=== PATIENT | female | born 1950 | race Caucasian/White ===

== ENCOUNTER → 2016-12-28 | Outpatient (CLI) | payer MEDICARE, OTHER ==
[2016-12-28 11:58] LABS: CH 31.6; CHCM 33.5; HCT 40.1 % (34.0-46.0); HDW 2.39; HGB 13.5 gm/dL (11.4-16.0); MCH 31.8 pg (25.0-35.0); MCHC 33.6 g/dL (31.0-37.0); MCV 94.6 fL (80.0-100.0); Mean Platelet Volume 7.2; RBC 4.23 m/uL (3.80-5.40)
[2016-12-28 12:07] LABS: ALT 39 U/L (9-52); AST 44 U/L (14-36); Alkaline Phosphatase 72 U/L (38-126); Anion Gap 10 mmol/L; Blood Urea Nitrogen 13 mg/dL (7-17); Calcium 9.1 mg/dL (8.4-10.2); Carbon Dioxide 26 mmol/L (22-30); Chloride 102 mmol/L (98-107); Cholesterol 157 mg/dL (<200); Glucose 155 mg/dL (74-99); HDL Cholesterol 49 mg/dL (40-60); Non-African American GFR(MDRD) >60 (>60 ml/min/1.73 sqM); Sodium 138 mmol/L (137-145); Total Bilirubin 0.9 mg/dL (0.2-1.3); Total Protein 7.2 g/dL (6.3-8.2); Triglycerides 171 mg/dL (<150)
[2016-12-28 12:17] LABS: Potassium 5.2 mmol/L (3.5-5.1)
[2016-12-28 14:15] LABS: Hemoglobin A1C 7.9 % (4.2-6.1)
== END ==
LOC: LAB 11:29
PROVIDERS: ATTEND Internal Medicine
DX: E78.4 Other hyperlipidemia (principal); E87.8 Other disorders of electrolyte and fluid balance, not elsewhere classified; E11.69 Type 2 diabetes mellitus with other specified complication; R53.83 Other fatigue
CPT/HCPCS: 80053; 80061; 83036; 85027

== ENCOUNTER → 2016-12-28 | Outpatient (CLI) | payer MEDICARE, OTHER ==
--- NOTE | 2016-12-28 21:18 | CT ---
EXAMINATION TYPE: CT ChestAbdPelvis w con DATE OF EXAM: 12/28/2016 12:51 PM COMPARISON: 06/25/2016 HISTORY: 66-year-old female follow-up lymphoma TECHNIQUE: Contiguous axial scanning of the chest, abdomen, and pelvis performed with IV Contrast, pa tient injected with 100 mL of Omnipaque 300. Delayed images through the kidneys were obtained. Forrester l/sagittal reconstructions performed. CT DLP: 2260 mGycm Automated exposure control for dose reduction was used. FINDINGS: CHEST: The heart is upper limits of normal in size without pericardial effusion. Dense mitral annular calcif ications are present. Coronary vessel calcifications are remarkable for coronary artery disease. Aorta is normal caliber with conventional arch vessel branching anatomy. No mediastinal or hilar lymphadenopathy. A solitary right axillary lymph node is stable to minimally smaller measuring 2.3 x 2.0 cm versus 2.5 x 2.2 cm, previously. Evaluation of the lungs shows no consolidation or pleural effusion. Mild diffuse bronchial wall thick ening could represent bronchitis or chronic asthma. ABDOMEN: There is a moderate-sized hiatal hernia and postsurgical changes of sleeve gastrectomy. No focal liver lesion. Portal venous system is patent. No biliary ductal dilatation. Adrenal glands, kidneys, spleen, and mildly atrophic pancreas show no gross abnormality. Mild atherosclerotic calcifications within the abdominal aorta. No mesenteric or retroperitoneal lymphadenopathy seen. No dilated small bowel, free fluid, or free ai r. Mild overall stool burden without pericolonic inflammatory change. There is a moderate-sized periumbilical hernia measuring 6.8 cm wide. Pelvis: Prominent artifacts from patient's large body habitus limiting evaluation. Bladder is urine distended . Uterus and ovaries are visualized. No abnormal fluid collection in the pelvis or pelvic lymphadenop athy seen. Bones: Degenerative changes at the hips and mid to lower lumbar spine with endplate spondylosis throughout t he thoracic spine. No osseous destructive process. IMPRESSION: 1. RIGHT AXILLARY LYMPHADENOPATHY STABLE TO MINIMALLY SMALLER (2.3 X 2.0 CM VERSUS 2.5 X 2.2 CM, PREV IOUSLY). NO OTHER SUSPICIOUS LYMPHADENOPATHY SEEN. 2. STABLE MODERATE-SIZED HIATAL HERNIA (STATUS POST SLEEVE GASTRECTOMY) AND A MODERATE-SIZED FATTY UM BILICAL HERNIA.
== END | disposition home or self-care (01) ==
LOC: RADCTMAIN 11:18
PROVIDERS: ATTEND Internal Medicine Hematology & Oncology
DX: K44.9 Diaphragmatic hernia without obstruction or gangrene (principal); K42.9 Umbilical hernia without obstruction or gangrene; R59.0 Localized enlarged lymph nodes
CPT/HCPCS: 71260; 74177; 36415; Q9967

== ENCOUNTER 2017-03-12 07:36 | Day surgery (SDC) | payer MEDICARE, OTHER ==
[2017-03-06 08:20] VITALS: BMI 46.0
[~2017-03-12 07:36] MED LIST: LACTATED RINGERS 1,000 ML IV SCH
[2017-03-12 08:27] VITALS: RESP 16; TEMP 97
[2017-03-12] MEDS: CYCLOPENTOLATE 1% OPHTH SOLN 2 ML BTL OP ONE ×3 (08:28→08:43)
[2017-03-12] MEDS ORDERED: LIDOCAINE 1% 20 ML VIAL (10MG/ML) FOR IV START INTRADERMA ONE (08:30)
[2017-03-12] MEDS: FLURBIPROFEN 0.03% OPHTH DROPS 2.5 ML BTL OP ONE ×3 (08:31→08:45)
[2017-03-12] MEDS: PHENYLEPHRINE 10% OPHTH DROPS 5 ML BTL OP ONE ×2 (08:34→08:47)
[2017-03-12 08:38] LABS: Glucose,Whole Blood 169 mg/dL (75-99)
[2017-03-12] MEDS ORDERED: PROPOFOL 10 MG/ML 20 ML VIAL IV ONE (09:08)
[2017-03-12] MEDS ORDERED: fentaNYL (PF) 50 MCG/ML 2 ML AMP ONE (09:08)
[2017-03-12] MEDS ORDERED: MIDAZOLAM 2 MG/2 ML VIAL ONE (09:08)
[2017-03-12] MEDS ORDERED: EPINEPHrine (PF) 0.5 ML in BALANCED SALT IRRIG SOLN COMB2 500 ML IRRIGATION ONE (09:12)
[2017-03-12] MEDS ORDERED: BALANCED SALT IRRIG SOLN COMB2 15 ML IRRIG.SOLN IRRIGATION ONE (09:14)
[2017-03-12] MEDS ORDERED: HYALURONATE SODIUM INTRAOCULAR 1 EACH SYRINGE (10MG/ML) INTRAOCULA ONE (09:14)
--- NOTE | 2017-03-12 09:32 | P.OP ---
Date of Procedure: 03/12/17 Preoperative Diagnosis: Postoperative Diagnosis: Procedure(s) Performed: PREOPERATIVE DIAGNOSIS: Cataract, right eye. POSTOPERATIVE DIAGNOSIS: Cataract, right eye. OPERATION: Phacoemulsification cataract, right eye. DESCRIPTION OF PROCEDURE: The patient was taken to the preoperative holding area. Intravenous Propofol was given so as to bring about adequate sedation. The following mixture was given for local anesthesia: 5 mL of 2% lidocaine, 5 mL of 0.75% Marcaine, and 1 mL of Wydase. Approximately 4 mL was injected in the retrobulbar space of the surgical eye. Additional 1 mL was then directed to the temporal area of the surgical eye. This was performed to allow adequate neurological block of the facial muscles. The patient was revived and then taken into the operative room. The patient was prepped and draped in the usual sterile manner for the operative eye. A lid speculum was put into position. The conjunctiva was resected back from the limbus in the 12 o'clock position. Bleeding was controlled with electrocautery. A #69 blade was then used and a half-thickness scleral incision approximately 1-mm posterior to the limbus was made on bare sclera. This was shelved in the clear cornea using a crescent knife. Next a 15-degree blade was used to make a stab incision at the 3 o' clock position at the corneolimbal interface. Keratome blade was then used and the superior wound was extended into the anterior chamber. Viscoelastic was injected into the anterior chamber and to maintain its form. Next, a cystotome was used and a continuous anterior capsulotomy was made without difficulty. Hydrodissection using a blunt cannula and BSS was performed. Phaco probe was then employed and a groove extending from 12 to 6 o'clock in the lens was created. A Juan F wand was used through the stab incision so as to perform a divide and conquer technique. Next an irrigation aspiration probe was utilized and any residual cortex was removed from the eye. Again, viscoelastic was injected into the anterior chamber. An Yaakov posterior chamber lens implant was placed in the cartridge and injected into the anterior chamber without difficulty. The Clozeey hook was utilized to spin the lens into position and this was again performed without any difficulty. The irrigation and aspiration probe was again employed and any residual viscoelastic was removed from the eye. Then BSS was injected into the limbal stab incision and the anterior chamber re-inflated. The conjunctiva was reapproximated using electrocautery. One drop of 0.25% Timoptic was placed over the corneal along with TobraDex ophthalmic ointment. Two sterile patches and a Teran eye shield were taped into position. The patient was transported to the recovery room in stable condition. Implants: Pathology: none sent Condition: stable Disposition: same day Indications for Procedure: Operative Findings: Description of Procedure:
[2017-03-12 09:43] LABS: Glucose,Whole Blood 151 mg/dL (75-99)
[2017-03-12 09:46] VITALS: BP 106/59; PULSE 60
[2017-03-12] MEDS ORDERED: GENTAMICIN/PREDNISOL AC OPHTH OINT 3.5GM OPHTHALMIC ONE (23:00)
[2017-03-12] MEDS ORDERED: BUPIVACAINE (PF) 0.75% 5 ML, LIDOCAINE 4% (PF) 5 ML, HYALURONIDASE, HUMAN RECOMB 150 UNIT MISCELLANE ONE ×3 (23:00)
[2017-03-12] MEDS ORDERED: TIMOLOL 0.5% OPHTH SOLN (PF) 0.2 ML DROPERETTE OP ONE (23:00)
== END 2017-03-12 10:09 | disposition home or self-care (01) ==
LOC: OR 07:36
PROVIDERS: ATTEND Ophthalmology
DX: H25.11 Age-related nuclear cataract, right eye (principal); E11.9 Type 2 diabetes mellitus without complications; M19.90 Unspecified osteoarthritis, unspecified site; C50.919 Malignant neoplasm of unspecified site of unspecified female breast; J30.2 Other seasonal allergic rhinitis; H40.059 Ocular hypertension, unspecified eye; I10 Essential (primary) hypertension; E78.5 Hyperlipidemia, unspecified; G47.33 Obstructive sleep apnea (adult) (pediatric); I82.409 Acute embolism and thrombosis of unspecified deep veins of unspecified lower extremity; Z79.84 Long term (current) use of oral hypoglycemic drugs; Z79.82 Long term (current) use of aspirin; Z79.4 Long term (current) use of insulin; Z79.899 Other long term (current) drug therapy; Z87.891 Personal history of nicotine dependence
CPT/HCPCS: 66984; V2632; J2001; J2250; J3470; J0171; J3010; J2704

== ENCOUNTER 2017-04-30 08:35 | Day surgery (SDC) | payer MEDICARE, OTHER ==
[2017-04-26 12:55] VITALS: BMI 46.0
[~2017-04-30 08:35] MED LIST changes: +LIDOCAINE 1% 20 ML VIAL (10MG/ML) FOR IV START INTRADERMA PRN
[2017-04-30] MEDS: PHENYLEPHRINE 10% OPHTH DROPS 5 ML BTL OP ONE ×3 (09:45→09:57)
[2017-04-30] MEDS: KETOROLAC 0.5% OPHTH DROPS 3 ML BTL OP ONE ×3 (09:47→09:59)
[2017-04-30] MEDS: CYCLOPENTOLATE 1% OPHTH SOLN 2 ML BTL OP ONE ×3 (09:49→10:01)
[2017-04-30] MEDS ORDERED: LIDOCAINE 1% 20 ML VIAL (10MG/ML) FOR IV START INTRADERMA ONE (09:55)
[2017-04-30] MEDS ORDERED: LACTATED RINGERS 1,000 ML IV ONE (09:55)
[2017-04-30 09:58] VITALS: RESP 16; TEMP 98.1
[2017-04-30 10:27] LABS: Glucose,Whole Blood 111 mg/dL (75-99)
[2017-04-30] MEDS ORDERED: PROPOFOL 10 MG/ML 20 ML VIAL IV ONE (10:28)
[2017-04-30] MEDS ORDERED: HYALURONATE SODIUM INTRAOCULAR 1 EACH SYRINGE (10MG/ML) INTRAOCULA ONE (10:37)
[2017-04-30] MEDS ORDERED: BALANCED SALT IRRIG SOLN COMB2 15 ML IRRIG.SOLN INTRAOCULA ONE (10:37)
[2017-04-30] MEDS ORDERED: EPINEPHrine (PF) 0.5 ML in BALANCED SALT IRRIG SOLN COMB2 500 ML IRRIGATION ONE (10:38)
--- NOTE | 2017-04-30 10:51 | P.OP ---
Date of Procedure: 04/30/17 Procedure(s) Performed: PREOPERATIVE DIAGNOSIS: Cataract, left eye. POSTOPERATIVE DIAGNOSIS: Cataract, left eye. OPERATION: Phacoemulsification cataract, left eye eye. DESCRIPTION OF PROCEDURE: The patient was taken to the preoperative holding area. Intravenous Propofol was given so as to bring about adequate sedation. The following mixture was given for local anesthesia: 5 mL of 2% lidocaine, 5 mL of 0.75% Marcaine, and 1 mL of Wydase. Approximately 4 mL was injected in the retrobulbar space of the surgical eye. Additional 1 mL was then directed to the temporal area of the surgical eye. This was performed to allow adequate neurological block of the facial muscles. The patient was revived and then taken into the operative room. The patient was prepped and draped in the usual sterile manner for the operative eye. A lid speculum was put into position. The conjunctiva was resected back from the limbus in the 12 o'clock position. Bleeding was controlled with electrocautery. A #69 blade was then used and a half-thickness scleral incision approximately 1-mm posterior to the limbus was made on bare sclera. This was shelved in the clear cornea using a crescent knife. Next a 15-degree blade was used to make a stab incision at the 3 o' clock position at the corneolimbal interface. Keratome blade was then used and the superior wound was extended into the anterior chamber. Viscoelastic was injected into the anterior chamber and to maintain its form. Next, a cystotome was used and a continuous anterior capsulotomy was made without difficulty. Hydrodissection using a blunt cannula and BSS was performed. Phaco probe was then employed and a groove extending from 12 to 6 o'clock in the lens was created. A Juan F wand was used through the stab incision so as to perform a divide and conquer technique. Next an irrigation aspiration probe was utilized and any residual cortex was removed from the eye. Again, viscoelastic was injected into the anterior chamber. An Yaakov posterior chamber lens implant was placed in the cartridge and injected into the anterior chamber without difficulty. The Sinskey hook was utilized to spin the lens into position and this was again performed without any difficulty. The irrigation and aspiration probe was again employed and any residual viscoelastic was removed from the eye. Then BSS was injected into the limbal stab incision and the anterior chamber re-inflated. The conjunctiva was reapproximated using electrocautery. One drop of 0.25% Timoptic was placed over the corneal along with TobraDex ophthalmic ointment. Two sterile patches and a Teran eye shield were taped into position. The patient was transported to the recovery room in stable condition. Pathology: none sent Condition: stable Disposition: same day
[2017-04-30 11:09] VITALS: BP 134/69; PULSE 60
[2017-04-30 11:13] LABS: Glucose,Whole Blood 94 mg/dL (75-99)
[2017-04-30] MEDS ORDERED: TIMOLOL 0.5% OPHTH SOLN (PF) 0.2 ML DROPERETTE OP ONE (23:00)
[2017-04-30] MEDS ORDERED: GENTAMICIN/PREDNISOL AC OPHTH OINT 3.5GM OPHTHALMIC ONE (23:00)
[2017-04-30] MEDS ORDERED: BUPIVACAINE (PF) 0.75% 5 ML, LIDOCAINE 4% (PF) 5 ML, HYALURONIDASE, HUMAN RECOMB 150 UNIT MISCELLANE ONE ×3 (23:00)
== END 2017-04-30 11:28 | disposition home or self-care (01) ==
LOC: OR 08:35
PROVIDERS: ATTEND Ophthalmology
DX: H26.9 Unspecified cataract (principal); Z87.891 Personal history of nicotine dependence; E11.9 Type 2 diabetes mellitus without complications; I10 Essential (primary) hypertension; E78.5 Hyperlipidemia, unspecified; Z86.718 Personal history of other venous thrombosis and embolism; Z85.3 Personal history of malignant neoplasm of breast; Z79.82 Long term (current) use of aspirin; Z79.84 Long term (current) use of oral hypoglycemic drugs; Z79.899 Other long term (current) drug therapy; Z79.4 Long term (current) use of insulin
CPT/HCPCS: 66984; V2632; J2001; J3470; J0171; J2704

== ENCOUNTER → 2017-06-26 | Outpatient (CLI) | payer MEDICARE, OTHER ==
[2017-06-26 12:32] LABS: Blood Urea Nitrogen 16 mg/dL (7-17); Non-African American GFR(MDRD) >60 (>60 ml/min/1.73 sqM)
--- NOTE | 2017-06-26 14:02 | CT ---
EXAMINATION TYPE: CT ChestAbdPelvis w con DATE OF EXAM: 06/26/2017 COMPARISON: 12/28/2016 HISTORY: Lymphoma CT DLP: 1874 mGycm Automated exposure control for dose reduction was used. CONTRAST: CT scan of the chest, abdomen and pelvis is performed with Oral Contrast and with IV Contrast, patien t injected with 100 ml mL of Omnipaque 300. FINDINGS: LUNGS: The lungs are grossly clear, there is no concerning parenchymal mass or nodule identified. T here is no pleural effusion or pneumothorax seen. The tracheobronchial tree is patent. MEDIASTINUM: There are no greater than 1 cm hilar or mediastinal lymph nodes. No pericardial effusi on is seen. Coronary artery calcification noted. OTHER: There is a lymph node in the right axilla measuring 2.3 x 1.7 cm and previously measuring 2.3 x 2 cm. Vague densities within the left breast are seen likely representing fibroglandular tissue be correlated with mammography.. LIVER/GB: No significant abnormality is appreciated. PANCREAS: No significant abnormality is seen. SPLEEN: No significant abnormality is seen. ADRENALS: No significant abnormality is seen. KIDNEYS: No significant abnormality is seen. BOWEL: Moderate sized hiatal hernia noted. Bowel gas pattern nonspecific. Postsurgical changes in the epigastric region are noted. LYMPH NODES: No greater than 1 cm abdominal or pelvic lymph nodes are appreciated. OSSEOUS STRUCTURES: Generative disc disease and arthropathy of the hips noted. OTHER: Periumbilical h ernia is stable. Stable sclerosis along the SI joint on the left correlate for sacroiliitis. IMPRESSION: 1. Persistent area of adenopathy right axilla slightly improved from the previous exam now measuring 2.3 x 1.7 cm and previously measuring 2.3 x 2 cm. 2. Stable moderate size hiatal hernia. 3. Stable moderate-sized fat-containing periumbilical hernia.
== END | disposition home or self-care (01) ==
LOC: RADCTMAIN 11:49
PROVIDERS: ATTEND Internal Medicine Hematology & Oncology
DX: C85.98 Non-Hodgkin lymphoma, unspecified, lymph nodes of multiple sites (principal); R59.0 Localized enlarged lymph nodes; K44.9 Diaphragmatic hernia without obstruction or gangrene; K42.9 Umbilical hernia without obstruction or gangrene
CPT/HCPCS: 82565; 84520; 71260; 74177; 36415; Q9967

== ENCOUNTER → 2017-12-20 | Outpatient (CLI) | payer MEDICARE, OTHER ==
[2017-12-20 08:34] LABS: Blood Urea Nitrogen 15 mg/dL (7-17)
--- NOTE | 2017-12-20 10:39 | CT ---
EXAMINATION TYPE: CT ChestAbdPelvis w con DATE OF EXAM: 12/20/2017 COMPARISON: 06/26/2017, 12/28/2016 and 07/12/2015 HISTORY: Follow-up exam for lymphoma and breast cancer. Last chemotherapy in September 2013 and last r adiation in February or March 2014. Surgical history of left breast lumpectomy and gastric sleeve. CT DLP: 3348.3 mGycm. Automated Exposure Control for Dose Reduction was Utilized. CONTRAST: CT scan of the thorax, abdomen and pelvis is performed with IV Contrast, patient injected with 100 mL of Isovue 300. FINDINGS: LUNGS: The lungs are grossly clear, there is no concerning parenchymal mass or nodule identified. T here is no pleural effusion or pneumothorax seen. The tracheobronchial tree is patent. Stable vegetables cook ior left upper lobe focal pleural thickening measuring 2 to 3 mm is unchanged. Scattered areas of herminio gular atelectasis are noted. MEDIASTINUM: There are no greater than 1 cm hilar or mediastinal lymph nodes. No pericardial effusi on is seen. Dense mitral annular calcifications are seen with moderate coronary artery calcification s. OTHER: The known enlarged right axillary lymph node now measures 2.3 x 1.7 cm and previously also aida sured 2.3 x 1.7 cm on the exam of 06/26/2017, measuring 2.3 x 2.0 cm on the exam of 12/28/2016. No add itional right-sided adenopathy is seen within the axilla. No left axillary adenopathy is identified. No internal mammary adenopathy is visualized left breast asymmetries on series 3 image 20 and 29 are similar to the prior of 06/26/2017. LIVER/GB: No significant abnormality is appreciated. PANCREAS: No significant abnormality is seen. SPLEEN: No significant abnormality is seen. ADRENALS: No significant abnormality is seen. KIDNEYS: No significant abnormality is seen. BOWEL: Moderate hiatal hernia is noted with postsurgical change at the gastroesophageal junction fro m prior sleeve gastrectomy. GENITAL ORGANS: No gross abnormality seen. LYMPH NODES: No greater than 1cm abdominal or pelvic lymph nodes are appreciated. OSSEOUS STRUCTURES: Degenerative changes of the femoral acetabular joints and of the visualized thora columbar and lumbosacral spine are moderate. Grade 1 anterolisthesis of L4 on L5 is present. OTHER: Moderate calcific atheromatous changes are seen of the abdominal aorta and its branches. That filled ventral abdominal hernia has a wide neck measuring 4.3 cm. IMPRESSION: 1. Stable enlarged right axillary lymph node in comparison to the prior of 06/26/2017, slightly impro johnny from the exam of 12/28/2016. 2. Unchanged moderate hiatal hernia with postsurgical changes of the sleeve gastrectomy and ventral f at filled abdominal wall hernia. 3. No suspicious intrathoracic adenopathy or adenopathy within the abdomen or pelvis.
== END | disposition home or self-care (01) ==
LOC: RADCTMAIN 07:50
PROVIDERS: ATTEND Internal Medicine Hematology & Oncology
DX: C85.98 Non-Hodgkin lymphoma, unspecified, lymph nodes of multiple sites (principal); K43.9 Ventral hernia without obstruction or gangrene; K44.9 Diaphragmatic hernia without obstruction or gangrene; Z98.890 Other specified postprocedural states
CPT/HCPCS: 82565; 84520; 71260; 74177; Q9967

== ENCOUNTER → 2018-01-20 | Outpatient (CLI) | payer MEDICARE, OTHER ==
--- NOTE | 2018-01-22 07:35 | MM ---
Reason for exam: screening (asymptomatic). Last mammogram was performed 1 year and 5 months ago. History: Patient is postmenopausal, has history of other cancer at age 63, and has history of breast cancer at age 57. Family history of breast cancer in sister at age 25. Malignant right breast aspiration of the right breast, June 12, 2013. Lumpectomy of the left breast, 2007. Chemotherapy. Radiation therapy. Physical Findings: A clinical breast exam by your physician is recommended on an annual basis and results should be correlated with mammographic findings. MG 3D Screening Mammo W/Cad Bilateral CC and MLO view(s) were taken. Prior study comparison: August 07, 2016, bilateral MG 3d diag mammo w/cad DAVID. April 08, 2015, bilateral MG diagnostic mammo w CAD DAVID. There are scattered fibroglandular densities. There is a multilobulated elongated mass with associated calcification in the medial central, likely slightly inferior left breast at middle depth. Right mass upper outer quadrant is stable over multiple prior exams. Lumpectomy change on the left. ASSESSMENT: Incomplete: need additional imaging evaluation, BI-RAD 0 RECOMMENDATION: Special view mammogram of the left breast. If lesion persists on supplemental views, image directed ultrasound is recommended. [facility] will attempt to contact patient to return for supplemental views and ultrasound if indicated.
== END | disposition home or self-care (01) ==
LOC: RADMAMWWP 14:33
PROVIDERS: ATTEND Internal Medicine
DX: Z12.31 Encounter for screening mammogram for malignant neoplasm of breast (principal)
CPT/HCPCS: 77063; 77067

== ENCOUNTER → 2018-01-24 | Outpatient (CLI) | payer MEDICARE, OTHER ==
--- NOTE | 2018-01-24 11:58 | MM ---
Reason for exam: additional evaluation requested from abnormal screening. Last mammogram was performed less than 1 month ago. History: Patient is postmenopausal, has history of other cancer at age 63, and has history of breast cancer at age 57. Family history of breast cancer in sister at age 25. Malignant right breast aspiration of the right breast, June 12, 2013. Lumpectomy of the left breast, 2007. Chemotherapy. Radiation therapy. Physical Findings: Nurse did not find any significant physical abnormalities on exam. MG 3D Work Up W/Cad LT CC with magnification, LM with magnification, and LM view(s) were taken of the left breast. Prior study comparison: January 20, 2018, bilateral MG 3d screening mammo w/cad. August 07, 2016, bilateral MG 3d diag mammo w/cad DAVID. There are scattered fibroglandular densities. There is a persistent multilobulated mass with associated calcifications. These results were verbally communicated with the patient and result sheet given to the patient on 01/24/18. ASSESSMENT: Incomplete: need additional imaging evaluation, BI-RAD 0 RECOMMENDATION: Ultrasound of the left breast. (inferior)
--- NOTE | 2018-01-24 12:01 | USB ---
Reason for exam: additional evaluation requested from abnormal screening. History: Patient is postmenopausal, has history of other cancer at age 63, and has history of breast cancer at age 57. Family history of breast cancer in sister at age 25. Malignant right breast aspiration of the right breast, June 12, 2013. Lumpectomy of the left breast, 2007. Chemotherapy. Radiation therapy. US Breast Workup LT Left complete breast ultrasound includes all four quadrants, the retroareolar region and axilla. Finding demonstrates a 0.9 x 0.5 x 0.9cm oval, solid lesion at 5 o'clock next to radial scar questionable mass. This appears as scar adjacent to the lumpectomy site and is not thought to correlate to the mammographic finding. These results were verbally communicated with the patient and result sheet given to the patient on 01/24/18. ASSESSMENT: Suspicious, BI-RAD 4 RECOMMENDATION: Stereotactic core biopsy of the left breast. Called Dr. Mock with mammographic findings and per office-okay to schedule biopsy and Dr. Mock will give results. Biopsy scheduled for 01/28/18 at 10:00. PRELIMINARY REPORT CALLED AND FAXED TO DR. MOCK ON 01/24/18.
== END | disposition home or self-care (01) ==
LOC: RADMAMWWP 08:33
PROVIDERS: ATTEND Internal Medicine
DX: R92.8 Other abnormal and inconclusive findings on diagnostic imaging of breast (principal)
CPT/HCPCS: 77065; 76641; G0279; 77061

== ENCOUNTER → 2018-02-06 | Day surgery (SDC) | payer MEDICARE, OTHER ==
[2018-02-06 09:30] VITALS: RESP 16; BMI 45.1
[2018-02-06 11:39] VITALS: BP 98/58; PULSE 79; TEMP 98.3
--- NOTE | 2018-02-06 12:58 | MM ---
Stereotactic Mammotome core biopsy left breast. HISTORY: Lobulated mass lower left breast with 2 sites sampled The lobulated mass in question within the left breast were targeted by the undersigned. Procedure was performed by the undersigned. Informed consent was obtained and all of the patients questions were answered. The standard sterile technique was utilized and appropriate local anesthesia was obtained with 1% lidocaine. Mammotome probe was advanced and multiple core samples were obtained and sent to pathology for interpretation from 2 sites. Microclip marker was deployed at each site of biopsy. Post procedural mammogram demonstrates appropriate deployment of radiopaque clip markers. The patient tolerated the procedure well and left the department in stable condition. Pathology results are pending. IMPRESSION: Successful stereotactic core biopsy Lobulated mass lower left breast with 2 sites sampled. Pathology results pending. Pathology Results: Malignant A. 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 See Surgical Pathology Cancer Case Summary. B. 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 See Surgical Pathology Cancer Case Summary. Recommendation Surgical consult of the left breast. PHAND
== END | disposition home or self-care (01) ==
LOC: RADMAMWWP 08:54
PROVIDERS: ATTEND Internal Medicine
DX: C50.812 Malignant neoplasm of overlapping sites of left female breast (principal)
CPT/HCPCS: 19081; 19082; 88305; A4648; J2001

== ENCOUNTER → 2018-02-21 | Outpatient (CLI) | payer MEDICARE, OTHER ==
[2018-02-21 11:15] VITALS: BP 107/67; PULSE 71; TEMP 98.1; BMI 45.1
--- NOTE | 2018-02-21 12:13 | P.GSHP ---
History of Present Illness H&P Date: 02/21/18 Mrs. Mcdowell is a 68-year-old white female who underwent routine mammogram on . No lesions of concern were noted in the right breast. Additional views were recommended of the left breast which revealed a lesion for which biopsy was recommended. She was noted to have an area of increased lobulation in the left breast. 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 The size was approximately 3.2 cm. This is ER/MA positive and HER-2 negative. Patient is status post a lymphoma in the right axilla 4 years ago. She has been treated for a non-Hodgkin's lymphoma with chemotherapy and radiation in the right axilla. She is clear of any evidence of disease from this at this time. The patient has not felt anything of concern in either breast. She has no nipple discharge or changes. No skin changes in her breasts. She has not noted any enlargement of lymph nodes recently. She has lymphedema in the right arm related to the treatment of a lymphoma and wears a compression sleeve. The patient is status post left breast lumpectomy and radiation therapy in 2007, no chemotherapy. She did not have any hormonal therapy. She is not aware of the type of cancer but told stage zero. Family History: 1. patient nonhodgkins lymphoma 2. prior left breast cancer 3. sister: breast cancer in her 20's, mastectomy 4. sister: lung, smoker Past surgical history: 1. Gastric sleeve 2. Fractured elbow on the right and replaced 3. Right axillary biopsy to diagnose non-Hodgkin's lymphoma 4. Left breast lumpectomy in 2007 5. Mediport placement/and removal 6. Arthroscopy left knee Medical history: 1. Hypertension 2. Diabetes 3. Lymphedema right upper extremity 4. DVT left lower leg took blood thinners and this was in 2010 Hormonal history: Menarche: 14 Pregnancies: 4, 4 live births, breast fed 3 of the children, first child born at 24 Menopause: 16 Hormones: none BCP: 10 years Social history: Smoke: Negative Alcohol: Negative Drugs: Negative - Constitutional Constitutional: Denies chills, Denies fever - EENT Eyes: denies blurred vision, denies decreased vision (cataracts removed) Ears: deny: decreased hearing, tinnitus Ears, nose, mouth and throat: Denies headache, Denies sore throat - Breasts Breasts: bilateral: as per HPI - Cardiovascular Cardiovascular: Reports high blood pressure - Respiratory Comment: CPAP sleep apnea Respiratory: Denies cough, Denies 7 - Gastrointestinal Comment: has regular colonoscopies, done last year benign polyp Gastrointestinal: Denies abdominal pain, Denies diarrhea, Denies nausea, Denies vomiting - Genitourinary (Female) Comment: UTI at times Genitourinary: Denies dysuria, Denies hematuria - Menstruation Menstruation: Reports postmenopausal - Musculoskeletal Comment: arthritis - Integumentary Integumentary: Denies pruritus, Denies rash - Neurological Neurological: Denies numbness, Denies weakness - Psychiatric Psychiatric: Denies anxiety, Denies depression - Endocrine Endocrine: Denies fatigue, Denies weight change - Hematologic/Lymphatic Comment: aspirin - Allergic/Immunologic Comment: none Past Medical History Past Medical History: Cancer, Diabetes Mellitus, Deep Vein Thrombosis (DVT), Eye Disorder, Hyperlipidemia, Hypertension, Osteoarthritis (OA), Skin Disorder, Sleep Apnea/CPAP/BIPAP Additional Past Medical History / Comment(s): eczema, hx breast cancer, non hodgkins lymphoma, fracture left foot 04/2016, CATARACT LT EYE, RT eye. Multiple joint repairs History of Any Multi-Drug Resistant Organisms: None Reported Past Surgical History: Bariatric Surgery, Breast Surgery, Joint Replacement, Orthopedic Surgery, Tonsillectomy Additional Past Surgical History / Comment(s): left breast lumpectomy 2007 with radiation. arthroscopic left knee, rt elbow replacement, port inserted/later removed 2012 for lymphoma, gastric sleeve, CATARACT REMOVED RT EYE 03/12/17, Left eye cataract, BX OF RT AXILLA 2012 WITH CHEMO AND RADIATION THERAPY Past Anesthesia/Blood Transfusion Reactions: No Reported Reaction Past Psychological History: No Psychological Hx Reported Smoking Status: Former smoker Past Alcohol Use History: None Reported Additional Past Alcohol Use History / Comment(s): quit smoking 1976 smoked for 10 yrs, 1 PPD Past Drug Use History: None Reported - Past Family History Sister(s) Family Medical History: Cancer Additional Family Medical History / Comment(s): OLDEST SISTER HAD BREAST CANCER 1966, MIDDLE SISTER HAD LUNG CANCER 2012 Father Additional Family Medical History / Comment(s): HEART PROBLEMS Medications and Allergies Home Medications Medication Instructions Recorded Confirmed Type Atorvastatin [Lipitor] 40 mg PO HS 03/06/17 02/21/18 History Calcium Carbonate 1,000 mg PO BID 03/06/17 02/21/18 History Cholecalciferol [Vitamin D3] 1,000 unit PO BID 03/06/17 02/21/18 History Cyanocobalamin (Vitamin B-12) 1,000 mcg PO TUTH 03/06/17 02/21/18 History [Vitamin B-12] Ferrous Sulfate [Feosol] 325 mg PO BID 03/06/17 02/21/18 History Furosemide [Lasix] 20 mg PO DAILY 03/06/17 02/21/18 History Gabapentin [Neurontin] 200 mg PO BID 03/06/17 02/21/18 History Insuln Asp Prt/Insulin Aspart 15 unit SQ BID 03/06/17 02/21/18 History [NovoLOG MIX 70-30 VIAL] Lisinopril [Zestril] 10 mg PO QAM 03/06/17 02/21/18 History Meloxicam [Mobic] 7.5 mg PO QAM 03/06/17 02/21/18 History Multivitamins, Thera [Multivitamin 1 tab PO QAM 03/06/17 02/21/18 History (formulary)] metFORMIN HCL [Glucophage] 500 mg PO BID 03/06/17 02/21/18 History Aspirin EC [Ecotrin Low Dose] 81 mg PO DAILY 01/27/18 02/21/18 History Ascorbic Acid [Vitamin C] 1,000 mg PO BID 02/21/18 02/21/18 History Allergies Allergy/AdvReac Type Severity Reaction Status Date / Time No Known Allergies Allergy Verified 02/06/18 09:08 Surgical - Exam Vital Signs Temp Pulse BP Pulse Ox 98.1 F 71 107/67 97 02/21/18 11:12 02/21/18 11:12 02/21/18 11:12 02/21/18 11:12 - General obese - Eyes normal ocular movement, no icteric - ENT no hearing loss, no congestion - Neck no masses, trachea midline - Respiratory normal respiratory effort, clear to auscultation - Cardiovascular Rhythm: regular Heart Sounds: normal: S1, S2 - Abdomen Abdomen: soft, non tender, no guarding, no rigid, no rebound - Integumentary no rash, no abnormal pigmentation - Neurologic no disoriented, no combative - Musculoskeletal normal gait, normal posture, other - Psychiatric oriented to time, oriented to person, oriented to place, speech is normal, memory intact Breast examination: Right breast: Positional exam no dominant masses or nodules of concern Right axilla: No adenopathy of concern Patient has swollen right upper extremity related to lymphedema from prior treatment for non-Hodgkin's lymphoma Left breast: Well-healed scar from prior lumpectomy radiation changes no dominant masses or nodules of concern appreciated otherwise Left axilla: No adenopathy of concern Assessment and Plan Assessment: Impression/plan: 1. New diagnosis of left breast mucinous invasive invasive carcinoma 2. Prior history of left breast lumpectomy and radiation therapy 3. Prior surgery for morbid obesity 4. Arthritis 5. Hypertension 6. Non-Hodgkin's lymphoma treated with radiation chemotherapy right upper extremity Plan: 1. I will discuss the case with medical oncology and radiation oncology 2. present the patient at tumor board cc: Cathy
== END | disposition home or self-care (01) ==
LOC: WWCWWP 10:28
PROVIDERS: ATTEND Surgery
DX: Z53.9 Procedure and treatment not carried out, unspecified reason (principal)

== ENCOUNTER → 2018-02-28 | Outpatient (CLI) | payer MEDICARE, OTHER ==
[2018-02-28 09:52] VITALS: BP 104/70; PULSE 68; TEMP 97.5; BMI 45.1
--- NOTE | 2018-02-28 10:36 | P.PN ---
Progress Note - Text Progress Note Date: 02/28/18 Mrs. Monson and her come in today for preoperative discussion prior to surgery next week. Her case was discussed with Dr. Duggan who is her medical oncologist. Dr. Duggan is in agreement with a bilateral mastectomy. She will undergo a right simple mastectomy and a left mastectomy with a sentinel node biopsy possible axillary node dissection. The patient and her understand the risks and benefits including bleeding and infection reaction to the anesthetic and wish to proceed. Impression/plan: 1. Right axillary radiation treatment secondary to lymphoma, as well as chemotherapy secondary to lymphoma, this was treated by Dr. Duggan and patient is in remission 2. Prior left breast lumpectomy and radiation therapy for DCIS 3. New onset left breast cancer Plan: 1. Right mastectomy, left sentinel node biopsy and simple mastectomy with possible axillary node dissection 2. Left breast sentinel node injection CC: Dr. Nicole
== END ==
LOC: WWCWWP 09:35
PROVIDERS: ATTEND Surgery
DX: Z53.9 Procedure and treatment not carried out, unspecified reason (principal)

== ENCOUNTER → 2018-02-28 | Outpatient (CLI) | payer MEDICARE, OTHER | END | disposition home or self-care (01) | LOC: LABPAT 10:43 | PROVIDERS: ATTEND Surgery | DX: Z01.812 Encounter for preprocedural laboratory examination (principal); Z01.818 Encounter for other preprocedural examination | CPT/HCPCS: 93005 ==

== ENCOUNTER 2018-03-04 06:54 | Day surgery (SDC) | payer MEDICARE, OTHER ==
[2018-02-27 11:43] VITALS: BMI 45.1
[~2018-03-04 06:54] MED LIST changes: +DEXAMETHASONE SOD PHOSPHATE 10 MG/ML 1 ML VIAL IV ONE; +HEPARIN SODIUM,PORCINE 5,000 UNIT/ML 1 ML VIAL SQ ONE; +HYDROmorphone 0.5 MG/0.5 ML SYRINGE IVP PRN; +MIDAZOLAM 2 MG/2 ML VIAL IV PRN; +ONDANSETRON 4 MG/2 ML VIAL IVP ONE; +Pre Op ABX Message 1 EACH MISC MISCELLANE ONE; +SCOPOLAMINE 1.5MG/72HR PATCH TRANSDERM ONE
[2018-03-04] MEDS ORDERED: ALPRAZolam 0.5 MG TAB PO ONE (08:20)
[2018-03-04] MEDS ORDERED: METHYLENE BLUE 10 MG/ML (10 ML VIAL) IV STA (09:06)
[2018-03-04 09:13] LABS: Glucose,Whole Blood 109 mg/dL (75-99)
[2018-03-04] MEDS ORDERED: PROPOFOL 10 MG/ML 20 ML VIAL IV ONE (09:30)
[2018-03-04] MEDS ORDERED: ONDANSETRON 4 MG/2 ML VIAL ONE (09:30)
[2018-03-04] MEDS ORDERED: LIDOCAINE 1% INJ 10MG/ML (20 ML MDV) ONE (09:30)
[2018-03-04] MEDS ORDERED: ePHEDrine SULFATE/0.9% NACL/PF 50 MG/5 ML SYRINGE IV ONE (09:30)
[2018-03-04] MEDS ORDERED: KETAMINE 10 MG/ML 20 ML VIAL ONE (09:30)
[2018-03-04] MEDS ORDERED: MIDAZOLAM 2 MG/2 ML VIAL ONE (09:30)
[2018-03-04] MEDS ORDERED: fentaNYL (PF) 50 MCG/ML 2 ML AMP ONE (09:30)
[2018-03-04] MEDS ORDERED: SUCCINYLCHOLINE CHLORIDE 100 MG/5 ML SYR IV ONE (09:30)
[2018-03-04] MEDS ORDERED: HEPARIN SODIUM,PORCINE 5,000 UNIT/ML 1 ML VIAL SQ ONE (09:33)
--- NOTE | 2018-03-04 09:41 | P.NAPBC ---
[facility] Queries - [facility] Queries Was patient's case review presented at [facility] tumor board? If no, comment.: Yes Was patient's pathology reviewed at [facility]? If no, comment.: Yes Was breast conservation surgery offered? If no, comment.: No (discussed but has had prior radiation to the breast so not felt to be a goo) Was sentinel node biopsy offered? If no, comment.: Yes Was diagnosis confirmed by percutaneous core biopsy? If no, comment.: Yes If mastectomy patient, was a preop referral to a reconstructive surgeon offered? : Yes (patient and her not interested) [facility] Comments: Patient prior lumpectomy and radiation to the left breast, and does not want conservation. Also not felt to be a good candidate for lumpectomy as not a good candidate for further radiation of the left breast. 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 She is in complete remission related to the lymphoma as per medical oncology. Risk and benefits of the procedure discussed with the patient and her .
[2018-03-04] MEDS ORDERED: SODIUM CHLORIDE 0.9% 50 ML with ceFAZolin 2,000 MG IV ONE ×2 (09:45)
--- NOTE | 2018-03-04 10:33 | NM ---
EXAMINATION TYPE: NM sentinel node injection DATE OF EXAM: 03/04/2018 COMPARISON: 02/06/2018 HISTORY: Left breast cancer with request for sentinel node injection. TECHNIQUE AND FINDINGS: The procedure of sentinel lymph node injection was explained to the patient. The benefits, alternatives, and risks were discussed. An informed consent was then obtained. Overlying skin is cleaned with sterile alcohol. Following this, 536 uCi Tc99m Tilmanocept was inject ed at the 9:00 position in the periareolar left breast intradermally. The patient tolerated the procedure well without any immediate complication. The patient was injecte d in the preoperative suite and then taken to surgery for surgical procedure what is presumed intraop erative gamma probe will be used for sentinel lymph node detection. IMPRESSION: Left breast radiotracer injection for sentinel node localization as above.
[2018-03-04] MEDS ORDERED: LACTATED RINGERS 1,000 ML IV ONE (11:10)
[2018-03-04] MEDS ORDERED: HYDROcodone/APAP 5-325MG 1 EACH TAB PO PRN (13:22)
[2018-03-04] MEDS ORDERED: HYDROmorphone 1 MG/ML 1 ML SYRINGE IV PRN (13:22)
[2018-03-04] MEDS ORDERED: ONDANSETRON 4 MG/2 ML VIAL IVP PRN ×2 (13:22→22:03)
[2018-03-04] MEDS ORDERED: NALOXONE 0.4 MG/ML 1 ML VIAL IV PRN (13:22)
--- NOTE | 2018-03-04 13:22 | P.OP ---
Date of Procedure: 03/04/18 Preoperative Diagnosis: Left breast cancer, prior left breast DCIS treated with lumpectomy and radiation therapy, prior right axillary B-cell lymphoma Postoperative Diagnosis: Same Procedure(s) Performed: Right simple mastectomy, left mastectomy, left sentinel node biopsy, left lymphatic node mapping with methylene blue Anesthesia: KAREY Surgeon: Miladys Beck Estimated Blood Loss (ml): 50 IV fluids (ml): 1,400 Urine output (ml): 250 Pathology: other (Both breast, left axillary sentinel node) Condition: stable Disposition: PACU Indications for Procedure: The patient is a 68-year-old white female who in the past underwent a left breast lumpectomy and radiation therapy for ductal carcinoma in situ. On a routine mammogram she was noted to have an abnormality in the left breast. This was biopsied and consistent with an invasive mucinous carcinoma. The patient had had prior radiation therapy to the left breast and after discussion she wished for bilateral mastectomies without reconstruction. She and her understood the risk and benefits and wished to proceed. The patient was brought to the operating room and following induction of anesthesia 6 mL of half-strength methylene blue were injected in the left periareolar area. This was done after the area was prepped with alcohol. Both breasts and the left axilla were prepped and draped in a sterile fashion. The right breast was approached first. Superior and inferior skin flaps were developed. These were carried down to the muscle of the chest wall. The breast was then brought from medial to lateral off the pectoralis major muscle. The specimen was removed. After we were assured that hemostasis was attained the wound was packed with moist packs. The left breast was then approached. Superior and inferior skin flaps were developed. This was carried down to the chest wall using the electrocautery as well as the Harmonic scalpel. The breast was dissected from medial to lateral being careful to maintain hemostasis. The breast was removed. In the area of the axilla careful evaluation was performed with the neoprobe. Increased radioactivity was noted and a sentinel lymph node was removed. This was performed using the Harmonic scalpel and blunt and sharp dissection. No blue lymph node was identified. The 10 second count on the lymph node removed was 15,000. 10 second background count was minimal. No other adenopathy of concern was palpated. The lymph node was sent for frozen section evaluation. This was noted to be negative for cancer. The wound was examined for hemostasis. Utilizing clean instruments the right mastectomy subcutaneous tissue was closed using a 3-0 Vicryl suture. Prior to this 2 SRAVAN drains were placed. The skin was closed using a 4-0 Monocryl. The drains were secured using a nylon suture. Closure was done after the wound had been well irrigated and we were assured that hemostasis was attained. The left mastectomy incision was closed in the same fashion. The subcutaneous tissue was closed using a 3-0 Vicryl suture. The skin was then closed using a 4-0 Monocryl. Prior to closure 2 SRAVAN drains were placed and these were secured using nylon suture. Both breasts were marked for orientation using a nylon suture. A short suture was placed superiorly and a long suture was placed laterally. In the left breast additional inferior tissue had been removed and the external surface of this was painted green for orientation. The patient tolerated the procedure in stable condition. All instrument and sponge counts were correct at the end of the case.
[2018-03-04 13:51] LABS: Glucose,Whole Blood 191 mg/dL (75-99)
[2018-03-04] MEDS ORDERED: SODIUM CHLORIDE 0.9% 1,000 ML IV ONE (15:01)
[2018-03-04] MEDS ORDERED: CYANOCOBALAMIN 500 MCG TAB PO SCH (15:30)
[2018-03-04 16:39] LABS: Glucose,Whole Blood 218 mg/dL (75-99)
--- NOTE | 2018-03-04 17:00 | P.CONS ---
History of Present Illness - History of Present Illness History of present illness The patient is a 68-year-old female who was found on mammography in January to have a lesion in the left breast. 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 Patient has had a previous lymphoma in the right axilla about 4 years ago. The patient has been treated for non-Hodgkin's lymphoma in the past with radiation therapy and chemotherapy. Patient today underwent right simple mastectomy along with left mastectomy and left sentinel node biopsy along with left lymphatic node mapping. We are asked to see her postoperatively for her general medical and diabetic care. Past medical history Patient has history of long-standing obesity and type 2 diabetes. Hypertension Atherosclerotic heart disease Hyperlipidemia Veronica osteoarthritis History of non-Hodgkin's lymphoma status post radiation to the right axilla along with chemotherapy. Previous DVT of the left lower leg for which she was on blood thinners back in 2010. Previous surgical history includes gastric sleeve surgery Right axillary biopsy for diagnosis of non-Hodgkin's lymphoma Left breast lumpectomy in 2007 Previous arthroscopy of the left knee. Fractured elbow of the right. The patient had a colonoscopy back in 2016 which revealed some mild diverticulosis and a small rectal polyp. Medications: No known ALLERGIES Metformin 500 mg twice a day NovoLog Mix 70/30 mix 15 units twice a day Neurontin 200 mg twice a day Lipitor 40 mg at at bedtime Lasix 20 mg every other day Zestril 10 mg every morning Aspirin 81 mg daily Vitamin C thousand milligrams twice a day, ferrous sulfate 325 twice a day, vitamin B-12 thousand units Tuesdays and Vitamin D 3000 units twice a day, calcium carbonate thousand units twice a day Mobic 7.5 daily Review of systems The patient is just coming out of anesthesia and has had some nausea but no chest pain or unusual shortness of breath. In no acute distress. Family history Positive for hypertension, coronary artery disease, diabetes. Social history The patient lives locally with her . No history of any excessive alcohol usage. Patient did smoke in the past but quit about 35 years ago. No illicit drug use history. Physical examination Vital signs reveal a pulse of 77 with respirations 18 and blood pressure 123/ 59. O2 saturation was 97 on 3 L nasal cannula. Last temperature 97.4. ] Once again patient is somewhat obtunded but does respond to some verbal stimuli. Bandages/dressings were present across the chest. Lungs were clear. Heart tones were distant but regular. Abdomen nontender. No unusual edema. No definite focal neurological deficits could be discerned. Accu-Cheks were 109 this morning and are up to 218 this afternoon. Impressions The patient is status post bilateral mastectomy. The patient did have invasive mucinous carcinoma of the left breast with ductal carcinoma in situ. Patient has diabetes and other past medical history as stated above. Patient will be put on her Accu-Cheks with coverage. DVT prophylaxis has been ordered with subcu heparin. Most of her home medications will be reinstated for her diabetes and hypertension. Discussed with patient's and nursing staff this evening. Further recommendations to follow pending clinical response. Past Medical History Past Medical History: Cancer, Diabetes Mellitus, Deep Vein Thrombosis (DVT), Eye Disorder, Hyperlipidemia, Hypertension, Osteoarthritis (OA), Skin Disorder, Sleep Apnea/CPAP/BIPAP Additional Past Medical History / Comment(s): Recurrent breast cancer. Left Rotator cuff tear and fractured proximal head of her left humerus on 08/03/17, eczema, hx breast cancer, non hodgkins lymphoma, fracture left foot. Current CPAP use, right arm lymphedema. History of Any Multi-Drug Resistant Organisms: None Reported Past Surgical History: Bariatric Surgery, Breast Surgery, Joint Replacement, Orthopedic Surgery, Tonsillectomy Additional Past Surgical History / Comment(s): Left breast lumpectomy 2007 with radiation. Arthroscopic left knee, rit elbow replacement, port inserted/later removed 2012 for lymphoma, gastric sleeve, bilateral cataract sugery, BX OF RT AXILLA 2012 WITH CHEMO AND RADIATION THERAPY. Past Anesthesia/Blood Transfusion Reactions: No Reported Reaction Smoking Status: Former smoker - Past Family History Sister(s) Family Medical History: Cancer Additional Family Medical History / Comment(s): OLDEST SISTER HAD BREAST CANCER 1966, MIDDLE SISTER HAD LUNG CANCER 2012. Father Additional Family Medical History / Comment(s): HEART PROBLEMS Medications and Allergies Home Medications Medication Instructions Recorded Confirmed Type Atorvastatin [Lipitor] 40 mg PO HS 03/06/17 03/04/18 History Calcium Carbonate 1,000 mg PO BID 03/06/17 02/28/18 History Cholecalciferol [Vitamin D3] 1,000 unit PO BID 03/06/17 02/28/18 History Cyanocobalamin (Vitamin B-12) 1,000 mcg PO TUTH 03/06/17 02/28/18 History [Vitamin B-12] Ferrous Sulfate [Feosol] 325 mg PO BID 03/06/17 02/28/18 History Furosemide [Lasix] 20 mg PO Q48H 03/06/17 03/04/18 History Gabapentin [Neurontin] 200 mg PO BID 03/06/17 03/04/18 History Insuln Asp Prt/Insulin Aspart 15 unit SQ BID 03/06/17 03/04/18 History [NovoLOG MIX 70-30 VIAL] Lisinopril [Zestril] 10 mg PO QAM 03/06/17 03/04/18 History Meloxicam [Mobic] 7.5 mg PO QAM 03/06/17 02/28/18 History Multivitamins, Thera [Multivitamin 1 tab PO QAM 03/06/17 02/28/18 History (formulary)] metFORMIN HCL [Glucophage] 500 mg PO BID 03/06/17 03/04/18 History Aspirin EC [Ecotrin Low Dose] 81 mg PO DAILY 01/27/18 02/28/18 History Ascorbic Acid [Vitamin C] 1,000 mg PO BID 02/21/18 02/28/18 History Allergies Allergy/AdvReac Type Severity Reaction Status Date / Time No Known Allergies Allergy Verified 02/27/18 11:21 Physical Exam Vitals: Vital Signs Temp Pulse Pulse Resp BP Pulse Ox 03/04/18 15:15 77 18 123/59 97 03/04/18 15:01 82 18 121/58 97 03/04/18 14:45 80 18 123/55 96 03/04/18 14:31 79 18 131/63 94 L 03/04/18 14:15 77 18 130/61 99 03/04/18 14:00 76 18 133/67 99 03/04/18 13:44 97.4 F L 82 16 130/64 99 03/04/18 08:12 97.7 F 72 18 156/73 99 Intake and Output 03/04/18 03/04/18 03/04/18 06:59 14:59 22:59 Intake Total 1550 600 Output Total 300 30 Balance 1250 570 Intake: IV 1550 600 Output: Urine 250 Estimated Blood Loss 50 30 Results Labs: Abnormal Lab Results - Last 24 Hours (Table) 03/04/18 03/04/18 Range/Units 08:59 13:48 POC Glucose (mg/dL) 109 H 191 H (75-99) mg/dL
[2018-03-04 18:30] LABS: Glucose,Whole Blood 191 mg/dL (75-99)
[2018-03-04] MEDS: INSULIN ASPART 100 UNIT/ML 1 ML 10 ML VIAL SQ SCH ×2 (18:47→21:02)
[2018-03-04] MEDS: HEPARIN SODIUM,PORCINE 5,000 UNIT/ML 1 ML VIAL SQ SCH ×2 (18:59→23:23)
[2018-03-04] MEDS: metFORMIN 500 MG TAB PO SCH (19:01)
[2018-03-04 19:58] VITALS: RESP 16
[2018-03-04 20:51] LABS: Glucose,Whole Blood 209 mg/dL (75-99)
[2018-03-04] MEDS ORDERED: ATORVASTATIN 40 MG TAB PO SCH (21:00)
[2018-03-04] MEDS: SODIUM CHLORIDE 0.45% 1,000 ML IV SCH (21:03)
[2018-03-05] MEDS: ASCORBIC ACID 500 MG TAB PO SCH ×2 (03:11→08:29)
[2018-03-05] MEDS: GABAPENTIN 100 MG CAP PO SCH ×2 (03:12→08:27)
[2018-03-05] MEDS: CHOLECALCIFEROL 1,000 UNIT TAB PO SCH ×2 (03:12→08:27)
[2018-03-05] MEDS: FERROUS SULFATE 325 MG TAB PO SCH ×2 (03:12→08:48)
[2018-03-05] MEDS: CALCIUM CARBONATE 500 MG CHEWABLE PO SCH ×2 (03:12→08:27)
[2018-03-05] MEDS: NYSTATIN 100,000UNIT/GM CREAM 30 GM TUBE TOPICAL SCH ×2 (03:13→09:38)
[2018-03-05] MEDS: SODIUM CHLORIDE 0.45% 1,000 ML IV SCH (03:13)
[2018-03-05 06:27] LABS: Basophils % (A) 0 %; Eosinophils % (A) 0 %; HCT 36.8 % (34.0-46.0); HGB 11.9 gm/dL (11.4-16.0); Lymphocytes # (A) 2.7 k/uL (1.0-4.8); Lymphocytes % (A) 23 %; MCH 30.5 pg (25.0-35.0); MCHC 32.3 g/dL (31.0-37.0); MCV 94.4 fL (80.0-100.0); Mean Platelet Volume 7.9; Monocytes # (A) 0.7 k/uL (0-1.0); Monocytes % (A) 6 %; Neutrophils # (A) 8.4 k/uL (1.3-7.7); Neutrophils % (A) 70 %; Platelet Count 198 k/uL (150-450); RDW 12.9 % (11.5-15.5)
[2018-03-05] MEDS: metFORMIN 500 MG TAB PO SCH (06:41)
[2018-03-05 06:46] LABS: Glucose,Whole Blood 107 mg/dL (75-99)
[2018-03-05] MEDS ORDERED: FUROSEMIDE 20 MG TAB PO SCH ×2 (07:00→09:00)
[2018-03-05 07:33] LABS: Anion Gap 7 mmol/L; Blood Urea Nitrogen 14 mg/dL (7-17); Calcium 8.4 mg/dL (8.4-10.2); Carbon Dioxide 21 mmol/L (22-30); Chloride 107 mmol/L (98-107); Glucose 108 mg/dL (74-99); Sodium 135 mmol/L (137-145)
[2018-03-05 07:37] LABS: Potassium 5.6 mmol/L (3.5-5.1)
--- NOTE | 2018-03-05 08:17 | P.PN ---
Progress Note - Text The patient is a 68-year-old female who has undergone bilateral breast mastectomy yesterday. The patient does have underlying history of diabetes, hypertension, atherosclerotic heart disease, hyperlipidemia, osteoarthritis, non -Hodgkin's lymphoma and previous DVT of the right lower extremity back in 2010. Patient is up ambulating to the bathroom this morning. Denies any unusual chest pain or shortness of breath. No nausea or vomiting this morning so far. Vital signs reveal temperature 96.8 with a pulse of 80 and respirations 16. Blood pressure 131/57 and she is 98% saturated on 3 L. Clinically she is ambulating without any unusual stress or focal neurological deficits. She is alert and oriented. Laboratory White count is 12 with a hemoglobin 11.9 and a platelet count of 198. Sodium 135 with a potassium of 5.6. BUN is 14 with a creatinine of 0.57 giving her a GFR greater than 90. Overall impressions and plans Patient is status post bilateral mastectomy. She is overall doing well. She is anticipating possible discharge to home Recommend she increase her Lasix to 20 mg every day. Recommend she have a basic metabolic panel done in approximately 3 days to follow-up on her hyperkalemia. She is to make sure she's not taking any extra potassium in supplements or her diet. If potassium continues to be elevated may need to decrease her lisinopril from 10 mg to 5 mg.
[2018-03-05] MEDS: HEPARIN SODIUM,PORCINE 5,000 UNIT/ML 1 ML VIAL SQ SCH (08:26)
[2018-03-05] MEDS: LISINOPRIL 10 MG TAB PO SCH ×2 (08:29→09:38)
[2018-03-05] MEDS: INSULIN ASPART 100 UNIT/ML 1 ML 10 ML VIAL SQ SCH (08:45)
[2018-03-05] MEDS ORDERED: ASPIRIN 81 MG PO SCH (09:00)
[2018-03-05] MEDS ORDERED: MELOXICAM 7.5 MG TAB PO SCH (09:00)
[2018-03-05] MEDS ORDERED: PANTOPRAZOLE 40 MG/10 ML VIAL IV SCH (09:00)
[2018-03-05 10:25] VITALS: BP 142/82; PULSE 89; TEMP 98.2
--- NOTE | 2018-03-05 10:31 | P.PN ---
Subjective Progress Note Date: 03/05/18 The patient is a 68-year-old white female status post bilateral mastectomy with left sentinel node biopsy on 03/04/2018. The patient at this time has no complaints related to her surgery. She had some initial nausea postoperatively but this morning is feeling well and tolerating diet without difficulty. She was noted to have an elevated potassium which has been addressed by Dr. Nicole. Objective - Vital Signs Vital signs: Vital Signs Temp 98.2 F 03/05/18 09:00 Pulse 89 03/05/18 09:00 Resp 16 03/05/18 09:00 BP 142/82 03/05/18 09:00 Pulse Ox 96 03/05/18 09:00 Intake & Output 03/04/18 03/05/18 03/05/18 18:59 06:59 18:59 Intake Total 2150 1460 Output Total 384 435 Balance 1766 1025 Weight 115.666 kg Intake: IV 2150 Oral 1460 Output: Drainage 54 35 Left 1 8 10 Left 2 18 5 Right 1 10 15 Right 2 18 5 Urine 250 400 Estimated Blood Loss 80 - Constitutional General appearance: Present: obese - Respiratory Respiratory: bilateral: CTA - Cardiovascular Rhythm: regular Heart sounds: normal: S1, S2 - Integumentary Integumentary Comment(s): Incisions clean and dry Slight excoriation of skin at the inferior aspect of the location of where her breast had been felt to be fungal irritation this was present preoperatively SRAVAN drain serous drainage - Psychiatric Psychiatric: Present: A&O x's 3, appropriate affect, intact judgment & insight - Labs CBC & Chem 7: 03/05/18 05:34 03/05/18 05:34 Labs: Abnormal Lab Results - Last 24 Hours (Table) 03/04/18 03/04/18 03/04/18 Range/Units 13:48 16:20 18:27 WBC (3.8-10.6) k/uL Neutrophils # (1.3-7.7) k/uL Sodium (137-145) mmol/L Potassium (3.5-5.1) mmol/L Carbon Dioxide (22-30) mmol/L Glucose (74-99) mg/dL POC Glucose (mg/dL) 191 H 218 H 191 H (75-99) mg/dL 03/04/18 03/05/18 03/05/18 Range/Units 20:49 05:34 05:34 WBC 12.0 H (3.8-10.6) k/uL Neutrophils # 8.4 H (1.3-7.7) k/uL Sodium 135 L (137-145) mmol/L Potassium 5.6 H (3.5-5.1) mmol/L Carbon Dioxide 21 L (22-30) mmol/L Glucose 108 H (74-99) mg/dL POC Glucose (mg/dL) 209 H (75-99) mg/dL 03/05/18 Range/Units 06:44 WBC (3.8-10.6) k/uL Neutrophils # (1.3-7.7) k/uL Sodium (137-145) mmol/L Potassium (3.5-5.1) mmol/L Carbon Dioxide (22-30) mmol/L Glucose (74-99) mg/dL POC Glucose (mg/dL) 107 H (75-99) mg/dL Assessment and Plan Assessment: Impression: 1. Hyperkalemia addressed by Dr. Nicole 2. Postop day #1 bilateral mastectomy with left sentinel node biopsy 3. Patient tolerating diet without difficulty 4. Diabetes 5. Hypertension 6. Atherosclerotic heart disease 7. Hyperlipidemia 8. Osteoarthritis 9. Non-Hodgkin's lymphoma 10. Previous DVT of lower extremity in 2010 11. Lymphedema right upper extremity Plan: 1. Discharge home if okay with medicine to follow-up with Dr. Lockhart in 1 week 2. Teach drain and dressing care 3. Medical management as per Dr. Nicole
--- NOTE | 2018-03-05 10:33 | P.DS ---
Providers Attending physician: Miladys Beck Consults: 03/04/18 13:25 Consult Physician Routine Consulting Provider: Godfrey Nicole Consult Reason/Comments: medical managment Do you want consulting provider notified?: Yes Primary care physician: Godfrey Nicole Plan - Discharge Summary Discharge Rx Participant: Yes New Discharge Prescriptions: Continue Meloxicam [Mobic] 7.5 mg PO QAM Gabapentin [Neurontin] 200 mg PO BID metFORMIN HCL [Glucophage] 500 mg PO BID Lisinopril [Zestril] 10 mg PO QAM Furosemide [Lasix] 20 mg PO Q48H Atorvastatin [Lipitor] 40 mg PO HS Insuln Asp Prt/Insulin Aspart [NovoLOG MIX 70-30 VIAL] 15 unit SQ BID Ferrous Sulfate [Iron (65 MG Elemental)] 325 mg PO BID Cyanocobalamin (Vitamin B-12) [Vitamin B-12] 1,000 mcg PO TUTH Cholecalciferol [Vitamin D3] 1,000 unit PO BID Multivitamins, Thera [Multivitamin (formulary)] 1 tab PO QAM Calcium Carbonate 1,000 mg PO BID Aspirin EC [Ecotrin Low Dose] 81 mg PO DAILY Ascorbic Acid [Vitamin C] 1,000 mg PO BID Discharge Medication List Atorvastatin [Lipitor] 40 mg PO HS 03/06/17 [History] Calcium Carbonate 1,000 mg PO BID 03/06/17 [History] Cholecalciferol [Vitamin D3] 1,000 unit PO BID 03/06/17 [History] Cyanocobalamin (Vitamin B-12) [Vitamin B-12] 1,000 mcg PO TUTH 03/06/17 [History ] Ferrous Sulfate [Iron (65 MG Elemental)] 325 mg PO BID 03/06/17 [History] Furosemide [Lasix] 20 mg PO Q48H 03/06/17 [History] Gabapentin [Neurontin] 200 mg PO BID 03/06/17 [History] Insuln Asp Prt/Insulin Aspart [NovoLOG MIX 70-30 VIAL] 15 unit SQ BID 03/06/17 [ History] Lisinopril [Zestril] 10 mg PO QAM 03/06/17 [History] Meloxicam [Mobic] 7.5 mg PO QAM 03/06/17 [History] Multivitamins, Thera [Multivitamin (formulary)] 1 tab PO QAM 03/06/17 [History] metFORMIN HCL [Glucophage] 500 mg PO BID 03/06/17 [History] Aspirin EC [Ecotrin Low Dose] 81 mg PO DAILY 01/27/18 [History] Ascorbic Acid [Vitamin C] 1,000 mg PO BID 02/21/18 [History] Follow up Appointment(s)/Referral(s): Miladys Beck MD [STAFF PHYSICIAN] - 1 Week Godfrey Nicole MD [Primary Care Provider] - 1 Week Activity/Diet/Wound Care/Special Instructions: [facility] [phone] TH dressing and drain care Do not drive until seen by Dr. Lockhart Basic metabolic panel to be drawn in 3 days and followed up with Dr. Corey Gracia for discharge if okay with Dr. Nicole Discharge Disposition: HOME SELF-CARE
[2018-03-05] MEDS ORDERED: ACETAMINOPHEN TAB 500 MG TAB PO STA (11:16)
[2018-03-05] MEDS ORDERED: MULTIVITAMINS, THERA 1 EACH TAB PO SCH (12:00)
[2018-03-05] MEDS ORDERED: ASCORBIC ACID 500 MG TAB PO SCH (21:00)
== END 2018-03-05 12:40 | disposition home or self-care (01) ==
LOC: OR 06:54 → 6PED 13:56 → OR 03-05 12:40
PROVIDERS: ATTEND Surgery
DX: C50.912 Malignant neoplasm of unspecified site of left female breast (principal); I89.0 Lymphedema, not elsewhere classified; I10 Essential (primary) hypertension; E11.9 Type 2 diabetes mellitus without complications; L30.9 Dermatitis, unspecified; H26.9 Unspecified cataract; I25.10 Atherosclerotic heart disease of native coronary artery without angina pectoris; B37.2 Candidiasis of skin and nail; E78.2 Mixed hyperlipidemia; M15.9 Polyosteoarthritis, unspecified; G47.33 Obstructive sleep apnea (adult) (pediatric); E66.01 Morbid (severe) obesity due to excess calories; Z68.42 Body mass index [BMI] 45.0-49.9, adult; Z99.89 Dependence on other enabling machines and devices; Z92.3 Personal history of irradiation; Z92.21 Personal history of antineoplastic chemotherapy; Z85.72 Personal history of non-Hodgkin lymphomas; Z80.3 Family history of malignant neoplasm of breast; Z79.1 Long term (current) use of non-steroidal anti-inflammatories (NSAID); Z79.82 Long term (current) use of aspirin; Z79.4 Long term (current) use of insulin; Z79.899 Other long term (current) drug therapy; Z90.3 Acquired absence of stomach [part of]; Z98.84 Bariatric surgery status; Z86.718 Personal history of other venous thrombosis and embolism; Z87.891 Personal history of nicotine dependence
CPT/HCPCS: 80048; 85025; 38792; 19303; 38525; A9520; J1644 ×2; J1100; J2405; J0690; C9113

== ENCOUNTER → 2018-03-08 | Outpatient (CLI) | payer MEDICARE, OTHER ==
[2018-03-08 09:21] LABS: ALT 86 U/L (9-52); AST 89 U/L (14-36); Albumin 3.7 g/dL (3.5-5.0); Alkaline Phosphatase 65 U/L (38-126); Anion Gap 9 mmol/L; Blood Urea Nitrogen 10 mg/dL (7-17); Calcium 8.9 mg/dL (8.4-10.2); Carbon Dioxide 26 mmol/L (22-30); Chloride 105 mmol/L (98-107); Glucose 119 mg/dL (74-99); Potassium 4.2 mmol/L (3.5-5.1); Sodium 140 mmol/L (137-145); Total Bilirubin 0.3 mg/dL (0.2-1.3); Total Protein 6.3 g/dL (6.3-8.2)
== END | disposition home or self-care (01) ==
LOC: LABWHC1 08:18
PROVIDERS: ATTEND Surgery
DX: C50.912 Malignant neoplasm of unspecified site of left female breast (principal)
CPT/HCPCS: 36415; 80053

== ENCOUNTER → 2018-03-13 | Outpatient (CLI) | payer MEDICARE, OTHER ==
[2018-03-13 11:37] VITALS: BP 112/67; PULSE 64; TEMP 97.5; BMI 44.2
--- NOTE | 2018-03-13 11:52 | P.PN ---
Subjective Progress Note Date: 03/13/18 The patient is a 68-year-old white female status post bilateral mastectomy. 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 This is a Tis lesion. This was a grade 1 lesion. The patient on the left side was noted to have a invasive mucinous carcinoma 2.9 mm in size and this was completely excised with the mastectomy and additionally was noted to have 1 sentinel node which was negative for cancer. This is a T2 N0 lesion grade 1. Stage II breast cancer. The patient at this time has [address] each are putting out less than 20 mL for the last 2 day intervals and each of the 4 drains can be removed. The patient has no complaints at this time. Physical exam: Lungs: Clear Heart: Regular rate and rhythm Kristine wrap was removed incisions are clean and dry with no evidence of any infection The patient has chronic right lymphedema, she has no evidence of left arm swelling at this time Impression/plan: 1. Bilateral mastectomy right breast DCIS, left breast invasive mucinous carcinoma 2. She will follow with Dr. Duggan and follow here in 1 week Cc: Dr. Nicole Objective - Vital Signs Vital signs: Vital Signs Temp 97.5 F L 03/13/18 11:30 Pulse 64 03/13/18 11:30 Resp BP 112/67 03/13/18 11:30 Pulse Ox 97 03/13/18 11:30 Intake & Output 03/12/18 03/13/18 03/13/18 18:59 06:59 18:59 Weight 113.398 kg
== END ==
LOC: WWCWWP 10:21
PROVIDERS: ATTEND Surgery
DX: Z53.9 Procedure and treatment not carried out, unspecified reason (principal)

== ENCOUNTER → 2018-03-21 | Outpatient (CLI) | payer MEDICARE, OTHER ==
[2018-03-21 08:45] VITALS: BMI 45.3
--- NOTE | 2018-03-21 09:17 | P.PN ---
Progress Note - Text Progress Note Date: 03/21/18 Irma is a 68-year-old white female who was recently status post bilateral mastectomy. On the right she was noted to have a ductal carcinoma in situ which was completely excised and felt to be approximately 10 mm by direct measurement. On the left she was noted to have a 2.9 cm in size invasive mucinous carcinoma. This was completely excised and the sentinel node biopsy was performed which was negative for cancer. She has seen Dr. Duggan from medical oncology and it has been recommended that Oncotype testing be done on the invasive mucinous carcinoma. We are waiting results of that test as to whether or not chemotherapy will be recommended. She is also been scheduled for genetic testing as per Dr. Duggan. At this time she has no complaints related to her incisions. Physical examination: Incisions clean and dry no evidence of any seroma or infection Impression/plan: 1. Bilateral mastectomy right breast DCIS, left breast invasive mucinous carcinoma 2. Patient is followed with medical oncology and we are waiting results of Oncotype testing 3. Follow-up here in 3 months time and will follow with Dr. Duggan Cc: Dr. Nicole
== END | disposition home or self-care (01) ==
LOC: WWCWWP 08:20
PROVIDERS: ATTEND Surgery
DX: Z53.9 Procedure and treatment not carried out, unspecified reason (principal)

== ENCOUNTER → 2018-04-10 | Outpatient (CLI) | payer MEDICARE, OTHER ==
--- NOTE | 2018-04-10 15:26 | P.PN ---
Progress Note - Text Progress Note Date: 04/10/18 The patient is a 68-year-old white female who is status post bilateral mastectomy March 04. On the right side she was noted to have ductal carcinoma in situ completely excised. On the left she was noted to have a 2.9 cm invasive mucinous carcinoma completely excised and the sentinel node which was negative. The patient had Oncotype testing performed and was told she did not need chemotherapy. Recently she noted in area of firm nodularity on the left chest wall. She recently noticed this and is concerned as to the etiology. It is not painful. Physical examination: Lungs: Clear Heart: Regular rate and rhythm Examination of the chest wall does not reveal any evidence of recurrent disease in the right chest wall. Incision is clean and dry Right axilla: No adenopathy of concern Patient has lymphedema of the right upper extremity Left chest wall: Incision is clean and dry, at the medial aspect there is a dog- ear with some firmness which I believe is most likely scar tissue Left axilla: No adenopathy of concern Impression/plan: 1. Increased nodularity left medial chest wall at incision site/recommend FNA 2. Lymphedema right upper extremity related to prior lymphoma 3. Next week Cc: Dr. Balderrama
--- NOTE | 2018-04-10 15:29 | P.PCN ---
Date of Procedure: 04/10/18 Preoperative Diagnosis: Nodularity left chest wall status post mastectomy, probable scar tissue Postoperative Diagnosis: same Procedure(s) Performed: FNA left chest wall mastectomy site Anesthesia: none Surgeon: Miladys Beck Estimated Blood Loss (ml): 0 Pathology: other (cytology left chest wall) Condition: stable Disposition: same day Indications for Procedure: Patient status post bilateral mastectomy on the left side to 2.9 cm invasive mucinous carcinoma and has now developed some nodularity in the incision area Description of Procedure: The area of concern in the left chest wall was prepped using alcohol. A 22- gauge needle on a 10 mL syringe was passed into the area of concern. The nature of the tissue appeared to be consistent with scar tissue multiple passes were made and cells were obtained. As the needle was withdrawn an alcohol swab was placed over the insertion site. A Band-Aid was then applied. The specimen was sent to pathology. The patient tolerated the procedure in stable condition. She will return next week for results of the FNA. Cc Dr. Balderrama
--- NOTE | 2018-04-10 16:46 | P.PN ---
Progress Note - Text Progress Note Date: 04/10/18 It was noted after I left the room that the patient's specimen had been placed in the sharps container. The patient was therefore notified that the specimen was not sent for cytology and it was requested that she return for a repeat fine -needle aspiration of the area. She was understanding of this and will return tomorrow.
== END ==
LOC: WWCWWP 15:03
PROVIDERS: ATTEND Surgery
DX: Z53.9 Procedure and treatment not carried out, unspecified reason (principal)

== ENCOUNTER → 2018-04-18 | Outpatient (CLI) | payer MEDICARE, OTHER ==
--- NOTE | 2018-04-18 13:57 | P.PN ---
Progress Note - Text Progress Note Date: 04/18/18 The patient presents today for results of FNA of the left chest wall incision site. Cytology revealed adipose tissue and macrophages, it did not show any atypia. The patient has no complaints at this time. She does ask regarding possible reconstruction at this time and has requested the name of the plastic surgeon. Physical exam: Left breast incision is clean and dry and well-healed with no evidence of any infection Impression: 1. Patient status post bilateral mastectomies 2. history of lymphoma 3. right arm lymphedema 4. no evidence of recurrent cancer 5. on Anastrazole 6. arthritis 7. HTN Plan: 1. follow up in three months from surgery 2. follow up with medical oncology 3. continue medical management of medical conditions cc: Cathy
[2018-04-18 13:58] VITALS: BP 107/71; PULSE 77; RESP 14; TEMP 98.1; BMI 43.5
== END | disposition home or self-care (01) ==
LOC: WWCWWP 13:28
PROVIDERS: ATTEND Surgery
DX: Z53.9 Procedure and treatment not carried out, unspecified reason (principal)

== ENCOUNTER → 2018-04-30 | Outpatient (CLI) | payer MEDICARE, OTHER ==
--- NOTE | 2018-04-30 16:22 | BD ---
EXAMINATION TYPE: Axial Bone Density DATE OF EXAM: 04/30/2018 COMPARISON: NONE CLINICAL HISTORY: Height: 5 FT 2 IN Weight: 251 FRAX RISK QUESTIONS: History of Fracture in Adulthood: YES Secondary Osteoporosis: RISK FACTORS HISTORY OF: Active: SOMEWHAT Postmenopausal woman: AGE 51 MEDICATIONS: Additional Medications: NOVOLIN,METFORMIN, FUROSMIDE, ATORVASTATIN, MELOXICAN,NEURONTIN, ASPIRIN, LIS INOPRIL,ANASTROZOLE, TRAMADOL Additional History: EXAM MEASUREMENTS: Bone mineral densitometry was performed using the [employer]he[employer] System. Bone mineral density as measured about the Lumbar spine is: ----- L1-L4(G/cm2): 1.200 T Score Values are as follows: ----- L2: -0.9 ----- L3: -0.5 ----- L4: 0.2 ----- L1-L4: 0.2 BASELINE Bone mineral density about the R hip (g/cm2): 1.429 Bone mineral density about the L hip (g/cm2): 1.073 T Score values are as follows: -----R Neck: 2.8 -----L Neck: 0.3 -----R Total: 2.0 -----L Total: 1.2 BASELINE IMPRESSION: Normal (Values between +1 and -1 indicate normal bone mass). Consider repeating this study in 5 year s or sooner if there is some new clinical indication. NOTE: T-SCORE=SD OF THE YOUNG ADULT MEAN.
== END ==
LOC: RADBDWWP 15:21
PROVIDERS: ATTEND Internal Medicine
DX: Z13.820 Encounter for screening for osteoporosis (principal); Z78.0 Asymptomatic menopausal state
CPT/HCPCS: 77080

== ENCOUNTER → 2018-06-20 | Outpatient (CLI) | payer MEDICARE, OTHER ==
[2018-06-20 09:47] VITALS: BP 103/54; PULSE 71; RESP 18; TEMP 97; BMI 44.2
--- NOTE | 2018-06-20 10:21 | P.PN ---
Subjective Progress Note Date: 06/20/18 Principal diagnosis: Right breast DCIS, left breast 2.9 cm mucinous cancer, node (-), patient had bilateral mastectomy on March 04, 2018. Patient saw Dr. Live regarding possible reconstruction. Patient has no complaints at this time related to the surgery. She has not had any changes that she noted in the chest wall. An Oncotype performed and was told after this that she did not need chemotherapy. The patient is taking anastrozole. She did not have any radiation therapy. Following the procedure the patient did have some concerns about some firmness over the left chest wall, an FNA was performed which showed only benign tissue. There is been no change in this area. The patient had had a prior left breast lumpectomy and radiation therapy in 2007. At that time no chemo or hormonal therapy. ROS: HEENT: negative heart: noegative lungs: negative GI: negative : negative Musculoskeletal: Arthritis no change from prior to diagnosis of breast cancer Objective - Vital Signs Vital signs: Vital Signs Temp 97.0 F L 06/20/18 09:41 Pulse 71 06/20/18 09:41 Resp 18 06/20/18 09:41 BP 103/54 06/20/18 09:41 Pulse Ox 96 06/20/18 09:41 Intake & Output 06/19/18 06/20/18 06/20/18 18:59 06:59 18:59 Weight 113.398 kg - Exam BMI 44.3 - Constitutional General appearance: Present: obese - EENT Eyes: Present: EOMI ENT: Present: hearing grossly normal - Neck Neck: Present: normal ROM - Respiratory Respiratory: bilateral: CTA - Cardiovascular Rhythm: regular Heart sounds: normal: S1, S2 - Gastrointestinal General gastrointestinal: Present: normal bowel sounds, soft - Integumentary Integumentary Comment(s): Incision right chest wall clean and dry no evidence of any recurrent cancer Incision left chest wall clean and dry no evidence of any recurrent disease there are changes on the left side consistent with her prior radiation however these are non-worrisome - Musculoskeletal Musculoskeletal: Present: gait normal - Psychiatric Psychiatric: Present: A&O x's 3, appropriate affect Assessment and Plan Assessment: Impression: 1. Status post bilateral mastectomy, right side DCIS, left side 2.9 cm invasive mucinous carcinoma, sentinel node biopsy negative for cancer 2. Patient is on anastrozole 3. Patient is not required chemotherapy 4. Patient does not require radiation therapy at this time Plan: 1. Medical management of medical conditions 2. Follow-up. 3-4 months time 3. Patient will follow up sooner if any questions or concerns The patient has met with Dr. Martell regarding possible reconstruction at this time she is choosing to wait on this. Cc: Dr. Nicole, DR. Duggan
== END ==
LOC: WWCWWP 09:30
PROVIDERS: ATTEND Surgery
DX: Z53.9 Procedure and treatment not carried out, unspecified reason (principal)

== ENCOUNTER → 2018-07-21 | Outpatient (CLI) | payer MEDICARE, OTHER ==
[2018-07-21 10:56] LABS: Blood Urea Nitrogen 16 mg/dL (7-17)
--- NOTE | 2018-07-21 14:04 | CT ---
EXAMINATION TYPE: CT ChestAbdPelvis w con DATE OF EXAM: 07/21/2018 COMPARISON: Prior CT chest abdomen pelvis 12/20/2017 HISTORY: History of lymphoma. CT DLP: 2545.3 mGycm Automated exposure control for dose reduction was used. CONTRAST: CT scan of the chest, abdomen and pelvis is performed with Oral Contrast and with IV Contrast, patien t injected with 100 mL of Isovue M300. FINDINGS: There is postop change to the stomach, thickening of the distal esophagus may be due to sma ll hiatal hernia, postop changes and shows a stable appearance. LUNGS: The lungs are grossly clear, there is no concerning parenchymal mass or nodule identified. T here is no pleural effusion or pneumothorax seen. The tracheobronchial tree is patent. MEDIASTINUM: There are no greater than 1 cm hilar or mediastinal lymph nodes. No pericardial effusi on is seen. Coronary artery calcification, possible mitral annular calcification again noted, there m ay be some calcification along the aortic root valve leaflets. AORTA: No significant abnormality is seen. OTHER: Right axilla shows a soft tissue nodule measuring 19 x 23 mm similar to prior exam. Postmaste ctomy changes are present bilaterally, suspect a small seroma or hematoma. The skin on the left.. LIVER/GB: Liver is enlarged and gallbladder is unremarkable PANCREAS: No significant abnormality is seen. SPLEEN: No significant abnormality is seen. ADRENALS: No significant abnormality is seen. KIDNEYS: No significant abnormality is seen. REPRODUCTIVE ORGANS: No gross abnormality seen. BOWEL: Nonspecific colonic wall thickening is noted. No bowel obstruction. There is an umbilical her alison as on prior exam containing fat. FREE AIR: No Free Air visible. ASCITES: None seen. RETROPERITONEAL ADENOPATHY: No retroperitoneal adenopathy is seen. LYMPH NODES: No greater than 1 cm abdominal or pelvic lymph nodes are appreciated. URINARY BLADDER: No significant abnormality is seen. PELVIC ADENOPATHY: None visualized. OSSEOUS STRUCTURES: Stable, there is facet arthropathy, degenerative disc changes visualized spine IMPRESSION: Right axillary lymph node shows a stable appearance. Interval surgery status post bilater al mastectomies. Coronary artery disease and additional postop changes. Hepatomegaly. Nonspecific col onic wall thickening.
== END | disposition home or self-care (01) ==
LOC: RADCTMAIN 10:19
PROVIDERS: ATTEND Internal Medicine Hematology & Oncology
DX: R16.0 Hepatomegaly, not elsewhere classified (principal); I25.10 Atherosclerotic heart disease of native coronary artery without angina pectoris; K63.89 Other specified diseases of intestine; C83.98 Non-follicular (diffuse) lymphoma, unspecified, lymph nodes of multiple sites; Z90.13 Acquired absence of bilateral breasts and nipples
CPT/HCPCS: 82565; 84520; 71260; 74177; 36415; Q9967

== ENCOUNTER → 2018-11-14 | Outpatient (CLI) | payer MEDICARE, OTHER ==
[2018-11-14 13:00] VITALS: BP 128/59; PULSE 70; RESP 20; TEMP 96.5; BMI 44.2
--- NOTE | 2018-11-14 14:09 | P.PN ---
Subjective Progress Note Date: 11/14/18 Principal diagnosis: The patient in 2007 underwent a lumpectomy for DCIS on the left breast. She had radiation following that resection. At that time she did not have any anti-hormonal therapy or chemotherapy. Irma is a 68-year-old white female who is status post bilateral mastectomy with a left sentinel node biopsy performed on [id number]. The patient's tumor in the right breast was ductal carcinoma in situ, and in the left breast the lesion was 29 mm and considered a [id number]/MA+Her2-Grade1 lesion. She is now taking Anestrazole, she did not have any chemotherapy or radiation therapy. She is having hot flashes. These are intermittent. She also had a non-Hodgkin's lymphoma in the right axilla and has lymphedema related to this. She wears an elastic sleeve for the lymphedema. She has had no exacerbation of this related to the mastectomy. Post mastectomy she did have a biopsy of a skin lesion performed which was negative for malignancy. The patient at this time has no complaints. The patient had genetic testing done which was negative. Family history: 1. Patient non-Hodgkin's lymphoma, bilateral breast cancers with the left being invasive in the right being DCIS 2. Sr. breast cancer in her 20s 3. Sister with lung cancer Review of systems: HEENT: Negative Lungs: Negative Heart: Negative GI: Negative :UTI Musculoskeletal: Negative The only complaint the patient has related to the nest resolve his intermittent hot flashes. She states she is able to handle this and his discussed this with medical oncology. Objective - Vital Signs Vital signs: Vital Signs Temp 96.5 F L 11/14/18 12:57 Pulse 70 11/14/18 12:57 Resp 20 11/14/18 12:57 BP 128/59 11/14/18 12:57 Pulse Ox 97 11/14/18 12:57 Intake & Output 11/13/18 11/14/18 11/14/18 18:59 06:59 18:59 Weight 113.398 kg - Exam BMI 44.3 - Constitutional General appearance: Present: obese - EENT Eyes: Present: EOMI ENT: Present: hearing grossly normal - Neck Neck: Present: normal ROM - Respiratory Respiratory: bilateral: CTA - Cardiovascular Rhythm: regular Heart sounds: normal: S1, S2 - Gastrointestinal General gastrointestinal: Present: soft - Integumentary Integumentary: Present: normal turgor - Musculoskeletal Musculoskeletal: Present: gait normal - Psychiatric Psychiatric: Present: A&O x's 3, appropriate affect, intact judgment & insight - Additional findings Additional findings: Examination of the chest wall Right incision: No evidence of any recurrent cancer Right axilla: No adenopathy of concern Right upper extremity patient with lymphedema which is related to her prior non- Hodgkin's lymphoma Left chest wall incision: Radiation changes, no evidence of any cancer Left axilla: No adenopathy of concern Assessment and Plan Assessment: Impression: 1. Patient status post bilateral mastectomy for a T2 and 0 M0 ER/MA positive HER-2/heydi negative grade 1 left breast cancer, right breast DCIS it should be noted that the patient in the past had undergone a previous left breast lumpectomy without radiation for DCIS 2. Patient status post treatment for non-Hodgkin's lymphoma which following she developed right upper extremity lymphedema 3. Redundant tissue at the lateral aspect of the right mastectomy 4. Arthritis 5. Hypertension 6. obesity 7. No evidence of any recurrent cancer. The patient and her and I have had a conversation regarding the possibility of breast reconstruction. At this time she questions whether or not autologous tissue could be used for breast reconstruction on the left side. We have discussed that this would be necessary to discuss with plastic surgery and at this time she does not want see another plastic surgeon. We will also discuss the possibility of tissue removal for redundant right axillary tissue and she is going to consider this and will call if she decides she wants this to be done. Plan: 1. Repeat examination in 3 months time 2. Continue anastrozole 3. Medical management of medical conditions 4. Patient will consider if she wants any further procedures done for IV reconstruction and reduction of redundant right breast axillary tissue and will contact us if she decides she does. CC: Tacos
== END ==
LOC: WWCWWP 12:34
PROVIDERS: ATTEND Surgery
DX: Z53.9 Procedure and treatment not carried out, unspecified reason (principal)

== ENCOUNTER → 2020-08-24 | Outpatient (CLI) | payer MEDICARE, OTHER ==
--- NOTE | 2020-08-24 15:07 | BD ---
EXAMINATION TYPE: Axial Bone Density DATE OF EXAM: 08/24/2020 COMPARISON: 04/30/2018 CLINICAL HISTORY: Postmenopausal screening Height: 61 IN Weight: 256 LBS FRAX RISK QUESTIONS: History of Fracture in Adulthood: RT ELBOW AGE 61; LT HUMERUS AGE 66 RISK FACTORS HISTORY OF: Active: MODERATE Postmenopausal woman: AGE 55 MEDICATIONS: Additional Medications: CALCIUM, VIT D, INSULIN, METFORMIN, MELOXICAN, ASPIRIN, LISINOPRIL, ANASTRAZO LE,TRAMADOL, ROSUVASTATIN Additional History: BREAST CANCER 2 TIMES WITH RADIATION;. NON HODGEKINS LYMPHOMA WITH CHEMO AND RAD IATION EXAM MEASUREMENTS: Bone mineral densitometry was performed using the [employer] System. Bone mineral density as measured about the Lumbar spine is: ----- L1-L4(G/cm2): 1.123 T Score Values are as follows: ----- L2: -1.9 ----- L3: -1.4 ----- L4: -0.3 ----- L1-L4: -0.5 Bone mineral density has: Decreased -8.0% since study of: 04/30/2018 Bone mineral density about the R hip (g/cm2): 1.453 Bone mineral density about the L hip (g/cm2): 1.060 T Score values are as follows: -----R Neck: 3.0 -----L Neck: 0.2 -----R Total: 1.5 -----L Total: 0.7 Bone mineral density has: Decreased -5.3% since study of: 04/30/2018 IMPRESSION: Osteopenia (T Score between -2.5 and -1). There is slightly increased risk of fracture and the patient may be considered for treatment. Re-Screen 2-5 years. NOTE: T-SCORE=SD OF THE YOUNG ADULT MEAN.
== END | disposition home or self-care (01) ==
LOC: RADBDWWP 09:45
PROVIDERS: ATTEND Internal Medicine Hematology & Oncology
DX: M85.80 Other specified disorders of bone density and structure, unspecified site (principal); C50.112 Malignant neoplasm of central portion of left female breast; C85.98 Non-Hodgkin lymphoma, unspecified, lymph nodes of multiple sites
CPT/HCPCS: 77080

== ENCOUNTER → 2021-05-08 | Outpatient (CLI) | payer MEDICARE, OTHER ==
--- NOTE | 2021-05-08 14:57 | US ---
EXAMINATION TYPE: US carotid duplex BILAT DATE OF EXAM: 05/08/2021 COMPARISON: NONE CLINICAL HISTORY: R09.89 CAROTID BRUIT. Carotid bruit per order. Previous smoker. Hypertension, hyper lipidemia. EXAM MEASUREMENTS: RIGHT: Peak Systolic Velocity (PSV) cm/sec ----- Right CCA: 75.1 ----- Right ICA: 102.6 ----- Right ECA: 116.9 ICA/CCA ratio: 1.4 RIGHT: End Diastole cm/sec ----- Right CCA: 15.7 ----- Right ICA: 34.0 ----- Right ECA: 13.3 LEFT: Peak Systolic Velocity (PSV) cm/sec ----- Left CCA: 89.5 ----- Left ICA: 93.9 ----- Left ECA: 95.3 ICA/CCA ratio: 1.0 LEFT: End Diastole cm/sec ----- Left CCA: 18.3 ----- Left ICA: 28.5 ----- Left ECA: 12.5 VERTEBRALS (direction of flow): Right Vertebral: Antegrade Left Vertebral: Antegrade Rhythm: Normal Intimal thickening seen bilaterally. No elevated velocities at this time. Plaque seen bilateral carot id bulbs and left proximal ECA. Hypoechoic area with hyperechoic center seen right neck: 1.1 x 0.8 x 0.6 cm. Hypoechoic area with hyperechoic center seen left neck: 1.6 x 1.1 x 0.7 cm. IMPRESSION: 1. Atheromatous plaquing present bilaterally without significant flow-limiting stenosis. 2. Note is made of bilateral neck lymphadenopathy. Criteria for Assigning % of Stenosis / Diameter reduction (Estimation based on the indirect measurements of the internal carotid artery velocities (ICA PSV). 1. Normal (no stenosis)=ICA PSV < 125 cm/s: ratio < 2.0: ICA EDV<40 cm/s. 2. Less than 50% stenosis=ICA PSV < 125 cm/s: ratio < 2.0: ICA EDV<40 cm/s. 3. 50 to 69% stenosis=ICA PSV of 125 to 230 cm/s: ration 2.0 ? 4.0: ICA EDV 40-100 cm/s. 4. Greater than 70% stenosis to near occlusion= ICA PSV > 230 cm/s: ratio > 4.0: ICA EDV > 100 cm/s. 5. Near occlusion= ICA PSV velocities may be low or undetectable: variable ratio and ICA EDV. 6. Total occlusion=unable to detect flow.
--- NOTE | 2021-05-09 09:00 | ECHOF ---
Referral Reason:R01.1 Undiagnosed cardiac murmur; R09.89 Bruit MEASUREMENTS -------- HEIGHT: 160.0 cm WEIGHT: 113.4 kg BP: RVIDd: 3.6 cm (< 3.3) IVSd: 1.3 cm (0.6 - 1.1) LVIDd: 3.5 cm (3.9 - 5.3) LVPWd: 1.2 cm (0.6 - 1.1) IVSs: 1.5 cm LVIDs: 2.3 cm LVPWs: 1.7 cm LAESV Index (A-L): 24.07 ml/m Ao Diam: 3.1 cm (2.0 - 3.7) AV Cusp: 1.2 cm (1.5 - 2.6) LA Diam: 4.5 cm (2.7 - 3.8) MV E Cornelius: 1.12 m/s MV DecT: 372 ms MV A Cornelius: 1.72 m/s MV E/A Ratio: 0.65 AV maxP.01 mmHg AV meanP.78 mmHg RAP: 5.00 mmHg RVSP: 31.17 mmHg FINDINGS -------- Sinus rhythm. This was a technically adequate study. The left ventricular size is normal. There is mild concentric left ventricular hypertrophy. Overa ll left ventricular systolic function is normal with, an EF between 55 - 60 %. Left ventricular salma limg pressure cannot be estimated due to severe mitral annular calcification. The right ventricle is mildly enlarged. Normal LA size by volume 22+/-6 ml/m2. The right atrial size is normal. Interatrial and interventricular septum intact. There is mild aortic valve sclerosis. There is no evidence of aortic regurgitation. There is mild aortic stenosis present. Peak/mean gradient across the Aortic Valve is 26.01mmHg / 12.78mmHg. Severe mitral annular calcification present. Mild mitral regurgitation is present. Ditk-ac-lkaxkv te mitral stenosis , with a MVA of 1.4cm (by PHT) Mild tricuspid regurgitation present. There is no evidence of pulmonary hypertension. The right v entricular systolic pressure, as measured by Doppler, is 31.17mmHg. There is no pulmonic regurgitation present. The aortic root size is normal. The inferior vena cava is mildly dilated. There is no pericardial effusion. CONCLUSIONS -------- 1. The left ventricular size is normal. 2. There is mild concentric left ventricular hypertrophy. 3. Overall left ventricular systolic function is normal with, an EF between 55 - 60 %. 4. Left ventricular fillimg pressure cannot be estimated due to severe mitral annular calcification. 5. The right ventricle is mildly enlarged. 6. There is mild aortic valve sclerosis. 7. There is no evidence of aortic regurgitation. 8. There is mild aortic stenosis present. 9. Peak/mean gradient across the Aortic Valve is 26.01mmHg / 12.78mmHg. 10. Severe mitral annular calcification present. 11. Mild mitral regurgitation is present. 12. Hfdh-up-cxfnbzeu mitral stenosis. 13. , with a MVA of 1.4cm (by PHT) 14. Mild tricuspid regurgitation present. TAXI SERVICER: Heavenly Zaragoza RDCS
== END | disposition home or self-care (01) ==
LOC: RADUSWWP 14:01
PROVIDERS: ATTEND Family Medicine
DX: R59.0 Localized enlarged lymph nodes (principal)
CPT/HCPCS: 93306; 93880

== ENCOUNTER → 2021-10-05 | Outpatient (CLI) | payer MEDICARE, OTHER ==
--- NOTE | 2021-10-05 09:58 | MR ---
EXAMINATION TYPE: MR brain wo/w con DATE OF EXAM: 10/05/2021 COMPARISON: None HISTORY: G43.119 Migraine with aura, Breast CA hx TECHNIQUE: Multiplanar, multisequence images of the brain and brainstem is performed without and with IV contras t, utilizing 11.5 mL intravenous Gadavist . FINDINGS: Diffusion weighted images demonstrate no evidence of a recent infarct or other diffusion ab normality. There is no extra-axial fluid collection. Periventricular, pericallosal and subcortical confluent and scattered hyperintensities present on inversion recovery T2-weighted sequences. The ana tricular system and cisternal spaces are normal in size and appearance. The brain volume is age appr opriate, there is cortical atrophy. Midline structures demonstrate normal morphology with a focus of low signal on T1, high signal on T2, no enhancement of the posterior aspect of the pituitary measuring only 6 x 3 mm likely representing pituitary cyst. The craniocervical junction appears within normal limits. Post contrast images demo nstrate no abnormal enhancement. The dural venous sinuses show inflammatory change in the sphenoid si nus, mucosal disease in the ethmoid air cells. The visualized sinuses are clear and the globes are in tact. Minimal high signal within the mastoids may represent some trapped fluid IMPRESSION: Age-related changes of atrophy and probable chronic small vessel ischemia. Sinus disease. 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
== END | disposition home or self-care (01) ==
LOC: RADMRIMAIN 08:42
PROVIDERS: ATTEND Nurse Practitioner Adult Health
DX: G43.119 Migraine with aura, intractable, without status migrainosus (principal)
CPT/HCPCS: 70553; A9585

== ENCOUNTER → 2022-08-27 | Outpatient (CLI) | payer MEDICARE ==
--- NOTE | 2022-08-27 14:14 | BD ---
EXAMINATION TYPE: Axial Bone Density DATE OF EXAM: 08/27/2022 COMPARISON: 08.24.2020 CLINICAL HISTORY: 72 years year old Female. 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 Bone mineral density as measured about the Lumbar spine is: ----- L1-L4(G/cm2): 1.108 T Score Values are as follows: ----- L1: 0.2 ----- L2: -2.3 ----- L3: -1.1 ----- L4: 0.8 ----- L1-L4: -0.6 Bone mineral density has: Decreased -1.3% since study of: 08.24.2020 Bone mineral density about the R hip (g/cm2): 1.265 Bone mineral density about the L hip (g/cm2): 1.178 T Score values are as follows: -----R Neck: 3.3 -----L Neck: 0.6 -----R Total: 2.0 -----L Total: 1.4 Bone mineral density has: Increased 6.8% since study of: 08.24.2020 FRAX%s: The graph provided illustrates a 8.8% chance for a major osteoporotic fx and a 0.3% chance fo r the hips probability for fx in 10 years time. IMPRESSION: Osteopenia (T Score between -2.5 and -1). There is slightly increased risk of fracture and the patient may be considered for treatment. Re-Screen 2-5 years. NOTE: T-SCORE=SD OF THE YOUNG ADULT MEAN.
== END | disposition home or self-care (01) ==
LOC: RADBDWWP 13:06
PROVIDERS: ATTEND Internal Medicine Hematology & Oncology
DX: C50.112 Malignant neoplasm of central portion of left female breast (principal); M85.88 Other specified disorders of bone density and structure, other site; Z71.89 Other specified counseling; Z17.0 Estrogen receptor positive status [ER+]; Z78.0 Asymptomatic menopausal state
CPT/HCPCS: 77080

== ENCOUNTER → 2024-05-28 | Outpatient (CLI) | payer MEDICARE ==
--- NOTE | 2024-05-28 09:37 | CT ---
EXAMINATION TYPE: CT abdomen pelvis wo con DATE OF EXAM: 05/28/2024 HISTORY: UTI, Rt flank pain CT DLP: 1287.10 mGycm. Automated Exposure Control for Dose Reduction was Utilized. TECHNIQUE: CT scan of the abdomen and pelvis is performed without oral or IV contrast. COMPARISON: FINDINGS: Within the limitations of a non-contrast study, the following observations are made. LUNG BASES: Heart is enlarged calcification coronary artery calcifications. Basilar atelectasis. LIVER/GB: Cholelithiasis.. PANCREAS: No significant abnormality is seen. SPLEEN: No significant abnormality is seen. ADRENALS: No significant abnormality is seen. KIDNEYS: No significant abnormality is seen. BOWEL: Moderate hiatal hernia with post gastric surgery. Bowel gas pattern nonspecific. LYMPH NODES: No greater than 1cm abdominal or pelvic lymph nodes are appreciated. OSSEOUS STRUCTURES: Hypertrophic changes of the pubic symphysis. Bilateral hip arthropathy and multil evel hypertrophic degenerative changes spine.. OTHER: Fact limits assessment of the pelvis. Bladder is nondistended. Uterus is limited by artifact. Vague attenuation in the mesentery may be related to artifact rather than on the right as diverticuli tis correlate clinically. There is a large fat-containing anterior abdominal wall hernia. No inflammatory changes. IMPRESSION: 1. No renal stones or hydronephrosis is seen bilaterally. 2. Cholelithiasis. 3. Large fat-containing anterior abdominal wall hernia. No inflammatory changes. 3. Ill-defined attenuation in the pelvic fat may be artifactual. Correlate clinically to exclude a mi ld mesenteritis or radiculitis. [facility], , 05/28/2024 9:34 AM
== END ==
LOC: RADCTMAIN 08:07
PROVIDERS: ATTEND Family Medicine
CPT/HCPCS: 74176